=== PATIENT | female | born 2000 | race Caucasian/White ===

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

== ENCOUNTER 2018-03-31 21:50 | Emergency (ER) | payer OTHER, SELFPAY ==
[~2018-03-31] VITALS: Ht 157.5 cm; Wt 56.8 kg
[~2018-03-31 21:50] MED LIST changes: +AUGM875T28 PO; +BENA25CA4 PO; +GUAN1TAB17 PO; +IBUP-1022 PO; +OLOP1OPD OS; +ZOFR4TAB14 PO
[2018-03-31 21:51] VITALS: BP 118/76
== END 2018-04-01 | disposition left against medical advice (07) ==
LOC: M ED 21:50
DX: J00 Acute nasopharyngitis [common cold] (principal); Z53.21 Procedure and treatment not carried out due to patient leaving prior to being seen by health care provider

== ENCOUNTER 2018-04-02 20:12 | Emergency (ER) | payer MEDICAID, SELFPAY ==
[~2018-04-02] VITALS: Ht 162.6 cm; Wt 56.8 kg
[~2018-04-02 20:12] MED LIST changes: -OLOP1OPD OS; +PATA2.5S OS
[2018-04-02 20:15] VITALS: BP 132/74
[2018-04-02 20:34] LABS: HEMATOCRIT 45.6 % (36.0-47.0); HEMOGLOBIN 15.2 g/dl (12.0-15.5); MEAN CORPUSCULAR HEMOGLOBIN 29.1 pg (27.0-33.0); MEAN CORPUSCULAR HGB CONC 33.3 g/dl (32.0-36.5); MEAN CORPUSCULAR VOLUME 87.4 fl (80.0-96.0); PLATELET COUNT, AUTOMATED 288 10^3/uL (150-450); RED BLOOD COUNT 5.22 10^6/uL (4.00-5.40)
[2018-04-02] MEDS ORDERED: DERMABOND TOPICAL SKIN ADHESIVE TOP ONE (20:45)
[2018-04-02 20:56] LABS: HCG, SERUM QUALITATIVE NEGATIVE (NEGATIVE)
[2018-04-02 21:06] LABS: ACETAMINOPHEN LEVEL < 2.0 UG/ML (10.0-30.0); ALBUMIN 4.2 GM/DL (3.2-5.2); ALT/SGPT 21 U/L (12-78); BILIRUBIN,DIRECT < 0.1 MG/DL (0.0-0.2); BILIRUBIN,TOTAL 0.3 MG/DL (0.2-1.0); BLOOD UREA NITROGEN 5 MG/DL (7-18); CALCIUM LEVEL 9.1 MG/DL (8.5-10.1); CARBON DIOXIDE LEVEL 30 MEQ/L (21-32); CHLORIDE LEVEL 104 MEQ/L (98-107); CREATININE FOR GFR 0.78 MG/DL (0.55-1.30); ETHYL ALCOHOL (ETHANOL) < 0.003 % (0.000-0.010); GLUCOSE, FASTING 88 MG/DL (70-100); POTASSIUM SERUM 3.3 MEQ/L (3.5-5.1); SALICYLATE LEVEL 2.2 MG/DL (5.0-30.0); SODIUM LEVEL 140 MEQ/L (136-145); TOTAL PROTEIN 7.9 GM/DL (6.4-8.2)
[2018-04-02] MEDS ORDERED: POTASSIUM CHLORIDE 10 MEQ SR TABLET PO ONE (21:45)
== END 2018-04-02 21:55 | disposition home or self-care (01) ==
LOC: M ED 20:12
DX: R46.89 Other symptoms and signs involving appearance and behavior (principal); S51.812A Laceration without foreign body of left forearm, initial encounter; X78.8XXA Intentional self-harm by other sharp object, initial encounter; Y92.89 Other specified places as the place of occurrence of the external cause; F33.9 Major depressive disorder, recurrent, unspecified; F17.210 Nicotine dependence, cigarettes, uncomplicated
CPT/HCPCS: 12002; 12013; 36415; 80048; 80076; 84443; 84703; 85027; 99285; G0480

== ENCOUNTER 2018-04-24 19:07 | Emergency (ER) | payer MEDICAID, SELFPAY ==
[~2018-04-24] VITALS: Ht 162.6 cm; Wt 56.8 kg
[2018-04-24 19:40] LABS: BASO % 0.1 % (0.0-1.0); EOS % 0.1 % (0.0-3.0); HEMATOCRIT 41.7 % (36.0-47.0); HEMOGLOBIN 13.9 g/dl (12.0-15.5); LYMPH # 1.7 10^3/uL (1.5-6.5); LYMPH % 10.4 % (24.0-44.0); MEAN CORPUSCULAR HGB CONC 33.3 g/dl (32.0-36.5); MEAN CORPUSCULAR VOLUME 87.1 fl (80.0-96.0); MONO # 0.7 10^3/uL (0.0-0.8); MONO % 4.2 % (0.0-5.0); NEUTROPHILS # 14.2 10^3/uL (1.8-7.7); NEUTROPHILS % 84.8 % (36.0-66.0); PLATELET COUNT, AUTOMATED 237 10^3/uL (150-450); RED BLOOD COUNT 4.79 10^6/uL (4.00-5.40); WHITE BLOOD COUNT 16.8 10^3/uL (4.0-10.0)
[2018-04-24 20:06] LABS: BLOOD UREA NITROGEN 10 MG/DL (7-18); CALCIUM LEVEL 8.6 MG/DL (8.5-10.1); CARBON DIOXIDE LEVEL 27 MEQ/L (21-32); CHLORIDE LEVEL 104 MEQ/L (98-107); CREATININE FOR GFR 0.76 MG/DL (0.55-1.30); GLUCOSE, FASTING 93 MG/DL (70-100); POTASSIUM SERUM 3.5 MEQ/L (3.5-5.1); SODIUM LEVEL 139 MEQ/L (136-145)
[2018-04-24] MEDS ORDERED: IBUPROFEN 800 MG TAB PO ONE (21:15)
[2018-04-24] MEDS ORDERED: AUGMENTIN 875 MG TAB PO ONE (21:15)
[2018-04-24] MEDS ORDERED: AUGM875T28 PO (23:27)
[2018-04-24] MEDS ORDERED: IBUP80TA PO (23:29)
[2018-04-24] MEDS ORDERED: TETANUS/DIPHTHERIA TOX ADSORB ADULT 0.5ML SYR/VIAL (90714) IM ONE (23:30)
[2018-04-25 00:07] VITALS: BP 104/56
== END 2018-04-25 00:09 | disposition home or self-care (01) ==
LOC: M ED 19:07
DX: S61.451A Open bite of right hand, initial encounter (principal); W55.01XA Bitten by cat, initial encounter; Y92.9 Unspecified place or not applicable; Y93.9 Activity, unspecified; Y99.9 Unspecified external cause status; Z72.0 Tobacco use; F12.10 Cannabis abuse, uncomplicated

== ENCOUNTER 2018-07-22 10:12 | Inpatient (IN) | payer MEDICAID, OTHER ==
[~2018-07-22] VITALS: Ht 162.6 cm; Wt 50.2 kg
[~2018-07-22 10:12] MED LIST changes: +IBUP80TA PO
[2018-07-22 11:45] LABS: HEMATOCRIT 40.1 % (36.0-47.0); HEMOGLOBIN 13.2 g/dl (12.0-15.5); MEAN CORPUSCULAR HGB CONC 32.9 g/dl (32.0-36.5); MEAN CORPUSCULAR VOLUME 91.1 fl (80.0-96.0); PLATELET COUNT, AUTOMATED 272 10^3/uL (150-450); WHITE BLOOD COUNT 7.8 10^3/uL (4.0-10.0)
[2018-07-22 12:18] LABS: HCG, SERUM QUALITATIVE NEGATIVE (NEGATIVE)
[2018-07-22 12:21] LABS: ALBUMIN 3.7 GM/DL (3.2-5.2); ALT/SGPT 18 U/L (12-78); BILIRUBIN,DIRECT < 0.1 MG/DL (0.0-0.2); BILIRUBIN,TOTAL 0.3 MG/DL (0.2-1.0); BLOOD UREA NITROGEN 6 MG/DL (7-18); CALCIUM LEVEL 8.9 MG/DL (8.5-10.1); CARBON DIOXIDE LEVEL 28 MEQ/L (21-32); CHLORIDE LEVEL 107 MEQ/L (98-107); CPK CREATINE PHOSPHOKINASE 245 U/L (26-192); CREATININE FOR GFR 0.65 MG/DL (0.55-1.30); GLUCOSE, FASTING 103 MG/DL (70-100); POTASSIUM SERUM 4.1 MEQ/L (3.5-5.1); SODIUM LEVEL 143 MEQ/L (136-145); TOTAL PROTEIN 7.2 GM/DL (6.4-8.2)
[2018-07-22 12:22] LABS: ACETAMINOPHEN LEVEL < 2.0 UG/ML (10.0-30.0); ETHYL ALCOHOL (ETHANOL) < 0.003 % (0.000-0.010); SALICYLATE LEVEL 2.7 MG/DL (5.0-30.0)
[2018-07-22 12:23] LABS: AMPHETAMINES LEVEL URINE NEGATIVE (NEGATIVE); BARBITURATES URINE NEGATIVE (NEGATIVE); BENZODIAZEPINES URINE NEGATIVE (NEGATIVE); CANNABINOIDS URINE POSITIVE (NEGATIVE); COCAINE METABOLITE URINE NEGATIVE (NEGATIVE); METHADONE URINE NEGATIVE (NEGATIVE); OPIATES URINE NEGATIVE (NEGATIVE); PHENCYCLIDINE URINE NEGATIVE (NEGATIVE)
[2018-07-22] MEDS ORDERED: MOM 30ML SUSPENSION UDC PO PRN (19:00)
[2018-07-22] MEDS ORDERED: LORazepam 1 MG TAB PO PRN (19:00)
[2018-07-22] MEDS ORDERED: MAALOX 30 ML SUSP *UDC PO PRN (19:00)
[2018-07-22] MEDS ORDERED: NICOTINE 14 MG/24 HR TRANSDERMAL TD ONE (20:00)
[2018-07-22] MEDS ORDERED: NICOTINE 21MG/24HR 1 EA TRANSDERMAL TD ONE (20:15)
--- NOTE | 2018-07-22 21:00 | ECGEPIP ---
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
[2018-07-23 02:03] VITALS: BP 119/86
[2018-07-23] MEDS: NICOTINE 21MG/24HR 1 EA TRANSDERMAL TD SCH (11:12)
[2018-07-23 11:55] VITALS: BP 122/70
[2018-07-23] MEDS ORDERED: DOCUSATE SODIUM 100 MG CAP PO PRN (13:15)
--- NOTE | 2018-07-23 13:15 | HPEPDOC ---
General Date of Admission July 22, 2018 at 18:58 Date of Service: July 23, 2018 Attending Physician: ANA WEBSTER MD Chief Complaint The patient is a 17-year-old female admitted with a reason for visit of Unspecified D/O. Source: Patient, RN/MD Exam Limitations: No limitations Severity: Severe Associated Symptoms: Increased agitation History of Present Illness Patient is a 17-year-old female, past medical history significant for depression, polysubstance abuse, admitted on account of suicidal and homicidal ideation. Patient had been fighting with her boyfriend when she mentioned slitting her throat an intention to harm others. She was admitted to inpatient psychiatric unit for further evaluation and management. On assessment, she denies chest pain, shortness of breath, nausea, abdominal pain. She, however, complains of cough which occurs when she lies down, lasting a long time usually. Home Medications No Active Prescriptions or Reported Meds Allergies Coded Allergies: No Known Allergies (Unverified , 04/24/18) Past Medical History Medical History Depression. Polysubstance abuse-THC, meth, cocaine, acid Surgical History Denies Social History * Smoker: greater than 1 pack/day Alcohol: occationally Drugs: cocaine, marijuana A-FIB/CHADSVASC A-FIB History Current/History of A-Fib/PAF?: No Current PO Anticoag Therapy: No Review of Systems Other systems A 10 point pertinent review of systems was completed, negative except as stated in the history of presenting illness. Physical Examination Other physical findings GENERAL: NAD SKIN : Warm, dry intact HEENT: Atraumatic, normocephalic, PERRL, moist mucous membrane CARDIOVASCULAR: Regular rate and rhythm, S1S2, no JVD, no edema, distal pulses + and palpable RESP: CTAB, no accessory muscle use noted ABDOMEN: BS+ non distended non tender MS: no joint deformities NEURO: Alert and oriented x 3, CN2-12 grossly intact PSYCH: no anxiety or agitation, appropriate mood and affect. Vital Signs Vital Signs Date Time Temp Pulse Resp B/P (MAP) Pulse Ox O2 Delivery O2 Flow Rate FiO2 07/23/18 11:55 99.1 94 16 122/70 (87) 07/23/18 08:17 Room Air 07/23/18 01:23 99 Assessment/Plan Paroxysmal cough Polysubstance abuse Depression Suicidal ideation/homicidal ideation PLAN I'll the patient has risk factors for bronchitis with polysubstance abuse and nicotine dependence. Her symptoms are suggestive of possibly GERD since they occur when she is lying down. We'll start on proton pump inhibitor and loratadine. Monitor response to above All other underlying acute psychiatric issues are being managed by primary team Plan / VTE VTE Prophylaxis Ordered?: No VTE Exclusion Mechanical Proph: Low Risk for VTE BELLA GOMEZ [facility] July 23, 2018 13:15
[2018-07-23] MEDS: LORATADINE 10 MG TAB PO SCH (14:16)
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
[2018-07-23] MEDS ORDERED: SERTRALINE HCL 50 MG TAB PO ONE (16:00)
[2018-07-23 18:01] VITALS: BP 115/59
[2018-07-23] MEDS: ACETAMINOPHEN TAB 650MG DOSE (2X325MG) PO PRN (18:26)
[2018-07-23] MEDS: PANTOPRAZOLE 40MG TAB (PROTONIX) PO SCH (20:37)
[2018-07-23 22:27] VITALS: BP 120/70
[2018-07-24 06:33] VITALS: BP 130/65
[2018-07-24] MEDS ORDERED: SERTRALINE HCL 50 MG TAB PO SCH (09:00)
[2018-07-24] MEDS: LORATADINE 10 MG TAB PO SCH (09:09)
[2018-07-24] MEDS: ONDANSETRON 4 MG ORAL DISINTEGRATING TAB (Q0162 PER 1MG) SL PRN ×2 (09:09→20:54)
[2018-07-24] MEDS: NICOTINE 21MG/24HR 1 EA TRANSDERMAL TD SCH (09:09)
--- NOTE | 2018-07-24 09:37 | MHIPNPDOC ---
[facility] Progress Note Progress Note DATE OF SERVICE: 07/24/18 HISTORY: Patient is a 17 -year-old , female, with a history of depression, anxiety, borderline personality d/o, polysubstance abuse, cutting, multiple admission [facility] as an adolescent who was brought to ED by PD under a 9.41 after pt's boyfriend called them due to pt threatening suicide and cutting herself with a razor on her lt arm, rt leg superficially per ED . Pt stated to PD who then reported pt's statements to ED BHU staff "I should have slit my throat, would have done a better job." Pt stated to staff in ED during interv iew "everyone I come in contact with" regarding HI and "Don't worry I won't hurt you, but stream control officer outside door I wish would ." She stated in ED that she and her boyfriend have been together for the past 4months and constantly fight with each other, cut themselves together to see who does it worse, used drugs together (sober prior to relationship). ED stated that pt had been send phone pics to boyfriend of her cutting her arm and leg. Pt stated that she has been cutting since she was 12y/o to releave emotional pain, but current only does it occasionally per ED. Pt endorsed depression, anger, anxiety, insomnia in ED. ED contacted pt's CM who speaks with pt daily and informed ED pt has be cutting, abusing substances, has moods that are up then down, anger, and poor appetite especially when feeling depressed. She admitted to not taking meds or being seen for outpatient treatment for 2yrs after last d/c [facility] per ED. VITAL SIGNS: See below. NEW TEST RESULTS: See below. CURRENT MEDICATIONS: See below. MENTAL STATUS EXAMINATION: General Appearance: well groomed, appears stated age, hospital scrubs/clothing, other (very superficial cuts almost like a rug burn on her lower forearm not her wrist) Demeanor: average Eye Contact: average Activity: average, anxious Behavior: cooperative Speech: clear, spontaneous, reg/rate,rhythm,volume Mood: depressed, flat Mood "decent" Affect: appropriate, congruent, flat Thought Process: logical/linear, depressed, intact Thought Content (Delusions): none reported, denies SI, HI, AVH Thought Content (Other): none reported Thought Content (Aggressive): none reported Perception (Hallucinations): none reported Perception (Other): none reported Cognition (Impairment of): none reported Cognition(Intelligence Est.): average Oriented: Awake, Alert, Oriented times three Insight: poor Judgment: Poor Psychosis: Denies DIAGNOSES: 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 Endorses stomach upset and nausea this am and explained to her most likely a side effect of zoloft and can decrease dose to improve. Also encouraged to take zoloft with food to limit stomach upset from it. Denies anger, SI/HI today. Denies urge to cut. States she's being social on the milieu which is beneficial. States she slept well last night. Feels she is tolerating her medications and they're beneficial. She is attending groups and finding them helpful. She denies SI/HI, hallucinations, delusions. Pt feels safe here. MANAGEMENT PLAN: continue plan medications: AbiLIFY 5 mg DAILY Atarax 25 mg Q4HP PRN PO ANXIETY/AGITATION Zoloft 25 mg DAILY Trazodone 50 mg QHSP PRN PO INSOMNIA TIME SPENT: 30 minutes. Vital Signs Vital Signs Date Time Temp Pulse Resp B/P (MAP) Pulse Ox O2 Delivery O2 Flow Rate FiO2 07/24/18 08:37 Room Air 07/24/18 06:33 97.0 64 14 130/65 (86) 07/23/18 01:23 99 Current Medications Current Medications Acetaminophen (Tylenol Tab) 650 mg Q6HP PRN PO HEADACHE or DISCOMFORT Last administered on 07/23/18at 18:26; Start 07/22/18 at 19:00 Al Hydrox/Mg Hydrox/Simethicone (Mylanta) 30 ml Q4HP PRN PO HEARTBURN/INDIGESTION; Start 07/22/18 at 19:00 Aripiprazole (AbiLIFY) 5 mg DAILY PO Last administered on 07/24/18at 09:09; Start 07/24/18 at 09:00 Docusate Sodium (Colace) 200 mg DAILYPRN PRN PO CONSTIPATION; Start 07/23/18 at 13:15 Home Med (Med Rec Complete!) ASDIRECTED XX ; Start 07/22/18 at 11:30; Stop 07/22/18 at 11:44; Status DC Hydroxyzine HCl (Atarax) 25 mg Q4HP PRN PO ANXIETY/AGITATION; Start 07/23/18 at 14:15 Loratadine (Claritin) 10 mg DAILY PO Last administered on 07/24/18 09:09; Start 07/23/18 at 14:00 Lorazepam (Ativan) 1 mg Q6HP PRN PO ANXIETY/AGITATION; Start 07/22/18 at 19:00; Status Cancel Magnesium Hydroxide (Milk Of Magnesia) 30 ml DAILYPRN PRN PO CONSTIPATION; Start 07/22/18 at 19:00 Nicotine (Nicoderm Cq 21mg) 1 patch DAILY TD Last administered on 07/24/18 09:09; Start 07/23/18 at 09:00 Ondansetron HCl (Zofran Odt) 4 mg Q4HP PRN SL NAUSEA OR VOMITING Last administered on 07/24/18 09:09; Start 07/24/18 at 08:30 Pantoprazole Sodium (Protonix) 40 mg QPM PO Last administered on 07/23/18at 20:37; Start 07/23/18 at 21:00 Sertraline HCl (Zoloft) 50 mg DAILY PO Last administered on 07/24/18 09:09; Start 07/24/18 at 09:00 Trazodone HCl (Desyrel) 50 mg QHSP PRN PO INSOMNIA; Start 07/22/18 at 19:00 Allergies Coded Allergies: No Known Allergies (Unverified , 04/24/18) TINA VENEGAS DO July 24, 2018 09:37
[2018-07-24 11:38] VITALS: BP 131/64
[2018-07-24 18:01] VITALS: BP 124/67
[2018-07-24] MEDS: traZODone 50 MG TAB PO PRN (20:54)
[2018-07-24] MEDS: hydrOXYzine 25 MG TAB PO PRN (20:54)
[2018-07-24] MEDS: ACETAMINOPHEN TAB 650MG DOSE (2X325MG) PO PRN (20:55)
[2018-07-24] MEDS: PANTOPRAZOLE 40MG TAB (PROTONIX) PO SCH (22:12)
[2018-07-25 06:19] VITALS: BP 121/58
[2018-07-25] MEDS: ONDANSETRON 4 MG ORAL DISINTEGRATING TAB (Q0162 PER 1MG) SL PRN (09:05)
[2018-07-25] MEDS: SERTRALINE HCL 25 MG TABLET PO SCH (09:05)
[2018-07-25] MEDS: NICOTINE 21MG/24HR 1 EA TRANSDERMAL TD SCH (09:05)
[2018-07-25] MEDS: LORATADINE 10 MG TAB PO SCH (09:05)
--- NOTE | 2018-07-25 10:58 | MHIPNPDOC ---
[facility] Progress Note Progress Note DATE OF SERVICE: 07/25/18 HISTORY: Patient is a 17 -year-old , female, with a history of depression, anxiety, borderline personality d/o, polysubstance abuse, cutting, multiple admission [facility] as an adolescent who was brought to ED by PD under a 9.41 after pt's boyfriend called them due to pt threatening suicide and cutting herself with a razor on her lt arm, rt leg superficially per ED. Pt stated to PD who then reported pt's statements to ED BHU staff "I should have slit my throat, would have done a better job." Pt stated to staff in ED during intervi ew "everyone I come in contact with" regarding HI and "Don't worry I won't hurt you, but low altitude air defense officer outside door I wish would ." She stated in ED that she and her boyfriend have been together for the past 4months and constantly fight with each other, cut themselves together to see who does it worse, used drugs together (sober prior to relationship). ED stated that pt had been send phone pics to boyfriend of her cutting her arm and leg. Pt stated that she has been cutting since she was 12y/o to releave emotional pain, but current only does it occasionally per ED. Pt endorsed depression, anger, anxiety, insomnia in ED. ED contacted pt's CM who speaks with pt daily and informed ED pt has be cutting, abusing substances, has moods that are up then down, anger, and poor appetite especially when feeling depressed. She admitted to not taking meds or being seen for outpatient treatment for 2yrs after last d/c [facility] per ED. VITAL SIGNS: See below. NEW TEST RESULTS: See below. CURRENT MEDICATIONS: See below. MENTAL STATUS EXAMINATION: General Appearance: well groomed, appears stated age, hospital scrubs/clothing, other (very superficial cuts almost like a rug burn on her lower forearm not her wrist) Demeanor: average Eye Contact: average Activity: average, less anxious Behavior: cooperative Speech: clear, spontaneous, reg/rate,rhythm,volume Mood: less depressed, less flat Mood "decent" Affect: appropriate, congruent, less flat Thought Process: logical/linear, less depressed, intact Thought Content (Delusions): none reported, denies SI, HI, AVH Thought Content (Other): none reported Thought Content (Aggressive): none reported Perception (Hallucinations): none reported Perception (Other): none reported Cognition (Impairment of): none reported Cognition(Intelligence Est.): average Oriented: Awake, Alert, Oriented times three Insight: fair Judgment: fair Psychosis: Denies DIAGNOSES: 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 Improved stomach upset in am with decrease in zoloft, tolerating current dose well and feels it's beneficial. States she tolerating abilify well, feels it's beneficial for mood stabilization and likes it. Denies anger, SI/HI today. Denies urge to cut. States she's being social on the milieu which is beneficial. States she slept well last night although did have a vivid dream most likely due to trazodone but states she wants to continue trazodone b/c it's beneficial and does mind having vivid dreams. Feels she is tolerating her medications and they're beneficial. She is attending groups and finding them helpful. She denies SI/HI, hallucinations, delusions. Pt feels safe here. MANAGEMENT PLAN: continue plan medications: AbiLIFY 5 mg DAILY Atarax 25 mg Q4HP PRN PO ANXIETY/AGITATION Zoloft 25 mg DAILY Trazodone 50 mg QHSP PRN PO INSOMNIA TIME SPENT: 30 minutes. Vital Signs Vital Signs Date Time Temp Pulse Resp B/P (MAP) Pulse Ox O2 Delivery O2 Flow Rate FiO2 07/25/18 06:19 96.9 87 14 121/58 (79) 07/24/18 08:37 Room Air 07/23/18 01:23 99 Current Medications Current Medications Acetaminophen (Tylenol Tab) 650 mg Q6HP PRN PO HEADACHE or DISCOMFORT Last administered on 07/24/18at 20:55; Start 07/22/18 at 19:00 Al Hydrox/Mg Hydrox/Simethicone (Mylanta) 30 ml Q4HP PRN PO HEARTBURN/INDIGESTION; Start 07/22/18 at 19:00 Aripiprazole (AbiLIFY) 5 mg DAILY PO Last administered on 07/25/18at 09:05; Start 07/24/18 at 09:00 Docusate Sodium (Colace) 200 mg DAILYPRN PRN PO CONSTIPATION; Start 07/23/18 at 13:15 Home Med (Med Rec Complete!) ASDIRECTED XX ; Start 07/22/18 at 11:30; Stop 07/22/18 at 11:44; Status DC Hydroxyzine HCl (Atarax) 25 mg Q4HP PRN PO ANXIETY/AGITATION Last administered on 07/24/18 20:54; Start 07/23/18 at 14:15 Loratadine (Claritin) 10 mg DAILY PO Last administered on 07/25/18 09:05; Start 07/23/18 at 14:00 Lorazepam (Ativan) 1 mg Q6HP PRN PO ANXIETY/AGITATION; Start 07/22/18 at 19:00; Status Cancel Magnesium Hydroxide (Milk Of Magnesia) 30 ml DAILYPRN PRN PO CONSTIPATION; Start 07/22/18 at 19:00 Nicotine (Nicoderm Cq 21mg) 1 patch DAILY TD Last administered on 07/25/18 09:05; Start 07/23/18 at 09:00 Ondansetron HCl (Zofran Odt) 4 mg Q4HP PRN SL NAUSEA OR VOMITING Last administered on 07/25/18 09:05; Start 07/24/18 at 08:30 Pantoprazole Sodium (Protonix) 40 mg QPM PO Last administered on 07/24/18 22:12; Start 07/23/18 at 21:00 Sertraline HCl (Zoloft) 25 mg DAILY PO Last administered on 07/25/18 09:05; Start 07/25/18 at 09:00 Sertraline HCl (Zoloft) 50 mg DAILY PO Last administered on 07/24/18 09:09; Start 07/24/18 at 09:00; Stop 07/24/18 at 09:52; Status DC Trazodone HCl (Desyrel) 50 mg QHSP PRN PO INSOMNIA Last administered on 07/24/18 20:54; Start 07/22/18 at 19:00 Allergies Coded Allergies: No Known Allergies (Unverified , 04/24/18) TINA VENEGAS DO July 25, 2018 09:11
[2018-07-25] MEDS: hydrOXYzine 25 MG TAB PO PRN ×2 (12:23→18:30)
[2018-07-25 17:53] VITALS: BP 114/70
[2018-07-25] MEDS: PANTOPRAZOLE 40MG TAB (PROTONIX) PO SCH (21:00)
[2018-07-25] MEDS: traZODone 50 MG TAB PO PRN (21:32)
[2018-07-26 06:42] VITALS: BP_SYST 123; BP_SYST 69; BP_DIAS 14; BP_DIAS 74
[2018-07-26] MEDS: NICOTINE 21MG/24HR 1 EA TRANSDERMAL TD SCH (09:45)
[2018-07-26] MEDS: LORATADINE 10 MG TAB PO SCH (09:46)
[2018-07-26] MEDS: SERTRALINE HCL 25 MG TABLET PO SCH (09:46)
[2018-07-26] MEDS: hydrOXYzine 25 MG TAB PO PRN ×2 (11:10→20:26)
[2018-07-26] MEDS ORDERED: SERTRALINE HCL 25 MG TABLET PO ONE (13:30)
[2018-07-26 18:12] VITALS: BP 120/61
[2018-07-26] MEDS: traZODone 50 MG TAB PO PRN (20:25)
[2018-07-26] MEDS: PANTOPRAZOLE 40MG TAB (PROTONIX) PO SCH (21:00)
[2018-07-27 06:35] VITALS: BP 103/51
[2018-07-27] MEDS: LORATADINE 10 MG TAB PO SCH (09:03)
[2018-07-27] MEDS: NICOTINE 21MG/24HR 1 EA TRANSDERMAL TD SCH (09:03)
[2018-07-27] MEDS: SERTRALINE HCL 50 MG TAB PO SCH (09:03)
--- NOTE | 2018-07-27 09:47 | MHIPN ---
DATE: 07/26/2018 CHIEF COMPLAINT: Says feels depressed. SUBJECTIVE: Seen for followup. Indicates she is feeling better, but still depressed, and that she feels the Zoloft ought to be increased, says used to take 150 mg, stopped it more than a year or so ago, says did well on it. MENTAL STATUS EXAM: Neat, cooperative, no agitation, no psychomotor retardation, has restricted affect, at times a bit tearful. She denies any thoughts of harming herself or anyone else. No firm plans. No evidence of any psychosis. Cognition grossly intact. Judgment and insight fair. ASSESSMENT: Major depressive disorder. Remains depressed and says also upset, has just received news that she may need to get rid of her dogs at her apartment, feels it is unfair. PLAN: Continue current care and the Zoloft is increased to 50 mg daily, may need to be titrated upwards, but still looking at an effective dose, and the lowest possible effective dose would be preferable, given the potential for side effects. She has been encouraged to participate in activities in the unit. Further recommendations will be made depending on the clinical picture. VITAL SIGNS: Blood pressure 123/74, pulse 69, temperature 98.3.
[2018-07-27] MEDS: hydrOXYzine 25 MG TAB PO PRN (16:18)
[2018-07-27 18:03] VITALS: BP 118/76
[2018-07-27] MEDS: PANTOPRAZOLE 40MG TAB (PROTONIX) PO SCH (20:53)
[2018-07-27] MEDS: traZODone 50 MG TAB PO PRN (20:54)
[2018-07-28 06:54] VITALS: BP 98/52
[2018-07-28] MEDS: LORATADINE 10 MG TAB PO SCH (08:57)
[2018-07-28] MEDS: SERTRALINE HCL 50 MG TAB PO SCH (08:57)
[2018-07-28] MEDS: NICOTINE 21MG/24HR 1 EA TRANSDERMAL TD SCH (08:58)
[2018-07-28] MEDS ORDERED: ABIL1TAB11 PO (09:28)
[2018-07-28] MEDS ORDERED: TRAZO50TA PO (09:28)
[2018-07-28] MEDS ORDERED: SERT-155 PO (09:28)
[2018-07-28] MEDS ORDERED: HYDR-3363 PO (09:28)
--- NOTE | 2018-07-28 09:29 | MHDSPDOC ---
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 Pt stated to PD who then reported pt's statements to ED [facility] staff "I should have slit my throat, would have done a better job." Pt stated to staff in ED during interview "everyone I come in contact with" regarding HI and "Don't worry I won't hurt you, but police chief deputy outside door I wish would ." She stated in ED that she and her boyfriend have been together for the past 4months and constantly fight with each other, cut themselves together to see who does it worse, used drugs together (sober prior to relationship). ED stated that pt had been send phone pics to boyfriend of her cutting her arm and leg. Pt stated that she has been cutting since she was 12y/o to releave emotional pain, but current only does it occasionally per ED. Pt endorsed depression, anger, anxiety, insomnia in ED. ED contacted pt's CM who speaks with pt daily and informed ED pt has be cutting, abusing substances, has moods that are up then down, anger, and poor appetite especially when feeling depressed. She admitted to not taking meds or being seen for outpatient treatment for 2yrs after last d/c [facility] per ED. CONSULTANTS INVOLVED: none TREATMENT AND PROGRESS ON THE UNIT : Pt was admitted to [facility], seen for psychiatric assessment and started on zoloft 50mg daily for mood and anxiety and abilify 5mg daily for antidepressant augmentation. She was provided vistaril 25mg q6hr prn anxiety and trazodone 50mg qhs prn insomnia. Pt found her medications beneficial and tolerated them well. She attended groups daily during her stay. Her symptoms improved with treatment. On day of discharge she denied depression, anxiety, insomnia, SI/HI, hallucinations, delusions. She was discharged home after family meeting with her sister with follow-up at [facility]3]. She felt safe for discharge. DISCHARGE ASSESSMENT: Pt seen and states she feels "good" and is looking forward to going home today with her boyfriend who she states is supportive and getting help for himself too. tolerating her zoloft well and feels it's beneficial. States she tolerating abilify well, feels it's beneficial for mood stabilization and likes it. Denies anger, SI/HI today. Denies urge to cut. States she's being social on the milieu which is beneficial. States she slept well last night although did have a vivid dream most likely due to trazodone but states she wants to continue trazodone b/c it's beneficial and does mind having vivid dreams. Feels she is tolerating her medications and they're beneficial. She is attending groups and finding them helpful. She denies depression, anxiety, insomnia, SI/HI, hallucinations, delusions. Pt feels safe to be discharged home. MENTAL STATUS EXAMINATION ON DISCHARGE: General Appearance: well groomed, appears stated age, hospital scrubs/clothing, other (very superficial cuts almost like a rug burn on her lower forearm not her wrist) Demeanor: average Eye Contact: average Activity: average, calm Behavior: cooperative Speech: clear, spontaneous, reg/rate,rhythm,volume Mood: euthymic, full Mood "good" Affect: appropriate, congruent, full Thought Process: logical/linear, intact Thought Content (Delusions): none reported, denies SI, HI, AVH Thought Content (Other): none reported Thought Content (Aggressive): none reported Perception (Hallucinations): none reported Perception (Other): none reported Cognition (Impairment of): none reported Cognition(Intelligence Est.): average Oriented: Awake, Alert, Oriented times three Insight: good Judgment: good Psychosis: Denies MEDICATIONS ON DISCHARGE: AbiLIFY 5 mg DAILY Atarax 25 mg Q4HP PRN PO ANXIETY/AGITATION Zoloft 50 mg DAILY Trazodone 50 mg QHSP PRN PO INSOMNIA PLAN/FOLLOWUP ARRANGEMENTS: D/c home with follow-up at [facility]3]. The amount of time spent in the coordination of care for this patient was approx imately 30 minutes. Vital Signs/I&Os Vital Signs Date Time Temp Pulse Resp B/P (MAP) Pulse Ox O2 Delivery O2 Flow Rate FiO2 07/28/18 06:54 98.0 69 14 98/52 (67) 07/27/18 07:59 Room Air 07/23/18 01:23 99 Medications No Active Prescriptions or Reported Meds Allergies Coded Allergies: No Known Allergies (Unverified , 04/24/18) TINA VENEGAS DO Jul 28, 2018 9:29 am
[2018-07-28] MEDS: hydrOXYzine 25 MG TAB PO PRN (11:39)
== END 2018-07-28 12:15 | disposition home or self-care (01) | DRG 751 ==
LOC: M ED 10:12 → M ED INP 18:58 → M PSY 07-23 01:47
PROVIDERS: ADMIT Psychiatry & Neurology Psychiatry; ATTEND Psychiatry & Neurology Psychiatry
DX: F33.1 Major depressive disorder, recurrent, moderate (principal); F60.3 Borderline personality disorder; F41.9 Anxiety disorder, unspecified; Z91.5 Personal history of self-harm; Z91.14 Patient's other noncompliance with medication regimen; Z91.19 Patient's noncompliance with other medical treatment and regimen; F17.200 Nicotine dependence, unspecified, uncomplicated; F14.10 Cocaine abuse, uncomplicated; F15.10 Other stimulant abuse, uncomplicated; F12.10 Cannabis abuse, uncomplicated; F16.10 Hallucinogen abuse, uncomplicated; Z63.0 Problems in relationship with spouse or partner; K21.9 Gastro-esophageal reflux disease without esophagitis; R11.0 Nausea; T43.225A Adverse effect of selective serotonin reuptake inhibitors, initial encounter

== ENCOUNTER 2018-08-12 18:13 | Emergency (ER) | payer MEDICAID, OTHER ==
[~2018-08-12] VITALS: Ht 162.6 cm; Wt 50.0 kg
[2018-08-12 18:13] VITALS: BP 119/56
[~2018-08-12 18:13] MED LIST changes: +ABIL1TAB11 PO; +HYDR-3363 PO; +SERT-155 PO; +TRAZ1TAB10 PO
== END 2018-08-12 20:38 | disposition left against medical advice (07) ==
LOC: M ED 18:13
DX: Z53.29 Procedure and treatment not carried out because of patient's decision for other reasons (principal)

== ENCOUNTER 2019-07-03 01:56 | Emergency (ER) | payer OTHER, SELFPAY ==
[~2019-07-03] VITALS: Ht 160 cm; Wt 52.3 kg
[~2019-07-03 01:56] MED LIST changes: -DIPH25CA PO; +DIPH25CA32 PO; -SERT-155 PO; +SERT50TA29 PO
[2019-07-03 02:31] VITALS: BP 138/89
== END 2019-07-03 02:35 | disposition home or self-care (01) ==
LOC: M ED 01:56
DX: F41.8 Other specified anxiety disorders (principal); F60.3 Borderline personality disorder

== ENCOUNTER 2019-08-19 21:31 | Emergency (ER) | payer MEDICAID, SELFPAY ==
[~2019-08-19] VITALS: Ht 162.6 cm; Wt 53.7 kg
[2019-08-19 21:32] VITALS: BP 118/63
[2019-08-19] MEDS ORDERED: cefTRIAXone SOD 250MG VIAL (J0696 PER 250MG) IM ONE (22:30)
[2019-08-19] MEDS ORDERED: LIDOCAINE 1% SDV 5ML VIAL DILUENT ONE (22:30)
[2019-08-19] MEDS ORDERED: AZITHROMYCIN 250MG TABLET PO ONE (22:30)
[2019-08-19] MEDS ORDERED: FLAG500T PO (23:20)
[2019-08-20 00:42] LABS: CHLAMYDIA DNA AMPLIFICATION POSITIVE (NEGATIVE); GC DNA AMPLIFICATION POSITIVE (NEGATIVE)
--- NOTE | 2019-08-20 21:24 | ED PDOC ---
Post-Departure Follow-Up called patient on the phone to rely results, she was called by someone this am with the results and is aware. she was told she needed to product picker a prescription, however she was treated here in the ER last night so will not need that prescription. Pt understands she still needs to take Flagyl. 08/20/19 2120 MIKALA CRISTOBAL PA-C Aug 20, 2019 21:24
== END 2019-08-19 23:29 | disposition home or self-care (01) ==
LOC: M ED 21:31
DX: Z20.2 Contact with and (suspected) exposure to infections with a predominantly sexual mode of transmission (principal); N76.0 Acute vaginitis; F17.210 Nicotine dependence, cigarettes, uncomplicated
CPT/HCPCS: 87210; 87661; 96374; 99283; J0696

== ENCOUNTER → 2019-09-28 | Emergency (ER) | payer MEDICAID ==
[~2019-09-28] MED LIST changes: +FLAG500T PO
== END | disposition left against medical advice (07) ==
LOC: M ED 19:30
DX: Z53.29 Procedure and treatment not carried out because of patient's decision for other reasons (principal)

== ENCOUNTER 2020-01-30 20:46 | Emergency (ER) | payer MEDICAID ==
[~2020-01-30] VITALS: Ht 162.6 cm; Wt 51.5 kg
[2020-01-30 21:24] LABS: BASO % 0.2 % (0.0-1.0); EOS # 0.2 10^3/uL (0.0-0.5); EOS % 1.7 % (0.0-3.0); HEMATOCRIT 44.6 % (36.0-47.0); HEMOGLOBIN 14.2 g/dl (12.0-15.5); LYMPH # 2.6 10^3/uL (1.5-5.0); LYMPH % 28.3 % (24.0-44.0); MEAN CORPUSCULAR HGB CONC 31.8 g/dl (32.0-36.5); MEAN CORPUSCULAR VOLUME 94.3 fl (80.0-96.0); MONO # 0.6 10^3/uL (0.0-0.8); MONO % 6.4 % (0.0-5.0); NEUTROPHILS # 5.7 10^3/uL (1.5-8.5); NEUTROPHILS % 63.2 % (36.0-66.0); PLATELET COUNT, AUTOMATED 227 10^3/uL (150-450); RED BLOOD COUNT 4.73 10^6/uL (4.00-5.40)
[2020-01-30 21:52] LABS: HCG, SERUM QUALITATIVE NEGATIVE (NEGATIVE)
[2020-01-30 21:54] LABS: ALBUMIN 4.1 GM/DL (3.2-5.2); ALT/SGPT 11 U/L (12-78); BILIRUBIN,DIRECT 0.1 MG/DL (0.0-0.2); BILIRUBIN,TOTAL 0.3 MG/DL (0.2-1.0); BLOOD UREA NITROGEN 8 MG/DL (7-18); CALCIUM LEVEL 8.6 MG/DL (8.5-10.1); CARBON DIOXIDE LEVEL 30 MEQ/L (21-32); CHLORIDE LEVEL 108 MEQ/L (98-107); CREATININE FOR GFR 0.73 MG/DL (0.55-1.30); GLOMERULAR FILTRATION RATE > 60.0 (>60); GLUCOSE, FASTING 109 MG/DL (70-100); LIPASE 98 U/L (73-393); POTASSIUM SERUM 3.7 MEQ/L (3.5-5.1); SODIUM LEVEL 142 MEQ/L (136-145); TOTAL PROTEIN 7.2 GM/DL (6.4-8.2)
[2020-01-30 23:20] LABS: CHLAMYDIA DNA AMPLIFICATION NEGATIVE (NEGATIVE); GC DNA AMPLIFICATION NEGATIVE (NEGATIVE)
[2020-01-31] MEDS ORDERED: IBUPROFEN 600MG TAB PO ONE (00:15)
[2020-01-31 01:16] VITALS: BP 120/64
--- NOTE | 2020-02-01 08:50 | REP ---
INDICATION: right sided pelvic pain. Repeat dictation. Preliminary report is provided at the time of the exam by nuzhat JIANG. COMPARISON: None. TECHNIQUE: Transabdominal scanning is performed.. FINDINGS: Uterine dimensions are normal at 9.1 x 4.5 x 4.3 cm. Endometrial echo is 1.3 cm thick and centrally placed. No free fluid is seen in the cul-de-sac. Visualized bladder vora are smooth. The right ovary has dimensions of 3.0 x 2.9 x 3.0 cm. It's Doppler flow is normal with a resistive index of 0.61. The left ovary dimensions are normal as well at 2.3 x 2.0 x 2.3 cm. It's Doppler flow was normal with resistive index of 0.70. IMPRESSION: Normal pelvic sonography. <Electronically signed by Roberto Grigsby > 02/01/20 0890
== END 2020-01-31 01:18 | disposition home or self-care (01) ==
LOC: M ED 20:46
DX: R10.2 Pelvic and perineal pain (principal); R19.7 Diarrhea, unspecified; N89.9 Noninflammatory disorder of vagina, unspecified; I10 Essential (primary) hypertension; J45.909 Unspecified asthma, uncomplicated; F17.210 Nicotine dependence, cigarettes, uncomplicated; F12.20 Cannabis dependence, uncomplicated

== ENCOUNTER → 2020-03-11 | Outpatient (REF) | payer OTHER | LOC: M LAB REF 14:57 | PROVIDERS: ATTEND Physician Assistant | DX: N76.0 Acute vaginitis (principal) ==

== ENCOUNTER 2020-04-06 12:56 | Inpatient (IN) | payer MEDICAID, OTHER ==
[~2020-04-06] VITALS: Ht 162.6 cm; Wt 47.9 kg
[~2020-04-06 12:56] MED LIST changes: +SERTRALINE 100 MG TAB PO SCH
--- OUTSIDE RECORDS SUMMARY | 2020-04-06 13:00 | CCD | Continuity of Care Document ---
Author Author Dariela GARCIA Organization [place] [address] Phone [phone] Care Team Providers Care New Accounts Representative Name Role Phone Martha Trejo D.O. AUTM Problems Active Problems Provider Date Insomnia AQUILES Broussard Onset: 03/11/2020 Moderate recurrent major depression AQUILES Broussard Onse t: 02/09/2020 Social History Type Date Description Comments Sex Unknown Tobacco Use Start: Unknown Heavy tobacco smoker (more than 10 cigarettes/day) ETOH Use Occasionally consumes alcohol Tobacco Use Start: Unknown Heavy tobacco smoker (more than 10 cigarettes/day) Recreational Drug Use Regularly uses Marijuana Exercise Type/Frequency Does not exercise Sun Exposure Does not use sunscreen Seat Belt/Car Seat Always uses seat belt Allergies, Adverse Reactions, Alerts Description No Known Drug Allergies Medications Active Medications SIG Qnty Indications Ordering Provide r Date Bactrim DS 800-160mg Tablets 1 by mouth every 12 hour x 7 days 14tabs N76.0 Estephania TiwariO Ledy 03/17/2020 Diflucan 150mg Tablets one tablet in 4 days (halways through antibiotic course) and send tablet in 7 days 2tabs N76.0 Estephania TiwariOLedy 03/17/2020 Sertraline HCL 100mg Tablets 1 by mouth every day 90tabs F33.1 Estephania TiwariOLedy 03/11 Chantix Starting Month Jeffery 0.5mg X 11 & 1 mg X 42 Tablets take as directed. 53tabs F17.210 Estephania TiwariO. 03/11/2020 Alprazolam 0.5mg Tablets take one tablet by mouth every 12 hours as needed 14tabs F43.0 Martha Bello D.O. 03/11/2020 Trazodone HCL 50mg Tablets take 1 tablet by mouth every night at bedtime 90tabs G47.00 Martha choi D.O. 02/09/2020 Albuterol Sulfate HFA 108(90Base) mcg/Act Aerosol Inhale Two Puffs By Mouth Every 4 Hours U nknown History Medications Metronidazole 500mg Tablets one tablet by mouth every 12 hours for 10 days 20tabs N76.0 Martha blake D.O. 02/09/2020 - 03/11/2020 Sertraline HCL 50mg Tablets 1 by mouth every day 30tabs F33.1 Martha Trejo D.O. 02/08 - 03/11/2020 Immunizations Description No Information Available Vital Signs Date Vital Result Comment 03/17/2020 1:16pm BP Systolic 110 mmHg BP Diastolic 76 mmHg Height 63.6 inches 5'3.60" Weight 104.50 lb BMI (Body Mass Index) 18.2 kg/m2 Heart Rate 96 /min Respiratory Rate 22 /min Body Temperature 97.8 F O2 % BldC Oximetry 98 % [place] Body Weight 115 lb 03/11/2020 10:32am BP Systolic 116 mmHg BP Diastolic 84 mmHg Height 63.6 inches 5'3.60" Weight 109.12 lb BMI (Body Mass Index) 19.0 kg/m2 Heart Rate 78 /min Respiratory Rate 18 /min Body Temperature 97.5 F O2 % BldC Oximetry 99 % [place] Body Weight 115 lb Results Test Acquired Date Facility Test Result H/L Range Note Laboratory test finding 03/11/2020 [facility] [address] [place] [address] [phone] Genital Culture FULL REPORT IN L <SEE NOTE> Normal 1 Wet [place] Trichomonas 01/30/2020 [facility] Outpatient Geovanni ting (Registration) [address], [place] [id number] [phone] Wet Prep WET PREP RESULT Normal 2 Chlamydia, GC & Trich Amp 01/30/2020 [facility] Outpatient Testing (Registration) [address] [place] [address] [phone] Chlamydia Dna Amplification NEGATIVE Normal Nega tive 3 GC Dna Amplification NEGATIVE Normal Negative 4 Trichomonas vaginalis (Amp) NOT DETECTED Normal Negative 5 Ua W/ Reflex To Culture 01/30/2020 [facility] Outpatient T esting (Registration) [address] [place] [address] [phone] Appearance, Urine RFX HAZY Normal Clear Color, Urine RFX YELLOW Normal Yellow PH,Urine RFX 6.0 units Normal 5.0-9.0 Specific [place] Ur Auto RFX 1.005 Normal 1.002-1.035 Protein, Urine Auto RFX NEGATIVE mg/dL Normal Negative Glucose, Urine (Ua) Auto RFX NEGATIVE mg/dL Normal Negative Ketone, Urine Auto RFX NEGATIVE mg/dL Normal Negative Urobilinogen, Urine Auto RFX 0.2 mg/dL Normal 0.0-2.0 Bilirubin, Urine Auto RFX NEGATIVE Normal Negative Nitrite, Urine Auto RFX NEGATIVE Normal Negative Leukocyte Esterase Ur Auto RFX NEGATIVE Normal Negative Blood, Urine Blood RFX NEGATIVE Normal Negative WBC, Urine Auto RFX 1 /HPF Normal 0-3 RBC, Urine Auto RFX 1 /HPF Normal 0-3 Bacteria, Urine Auto RFX NEGATIVE Normal Negative Squam Epithelial Cell Ur Aurfx 8 /HPF Normal 0-6 Hyaline Cast, Urine Auto RFX 0 /LPF Normal 0-1 CBC With Differential 01/30/2020 [facility] Outpatient Geovanni ting (Registration) [address] [place] [address] [phone] White Blood Count 9.0 10 Normal 4.0-10.0 Red Blood Count 4.73 10 Normal 4.00-5.40 Hemoglobin 14.2 g/dL Normal 12.0-15.5 Hematocrit 44.6 % Normal 36.0-47.0 Mean Corpuscular Volume 94.3 fl Normal 80.0-96.0 Mean Corpuscular Hemoglobin 30.0 pg Normal 27.0-33.0 Mean Corpuscular HGB Conc 31.8 g/dL Low 32.0-36.5 Red Cell Distribution Width 12.7 % Normal 11.5-14.5 Platelet Count, Automated 227 10 Normal 150-450 Neutrophils % 63.2 % Normal 36.0-66.0 Lymph % 28.3 % Normal 24.0-44.0 [place] % 6.4 % High 0.0-5.0 Eos % 1.7 % Normal 0.0-3.0 Baso % 0.2 % Normal 0.0-1.0 Immature Granulocyte % 0.2 % Normal 0-3.0 Nucleated Red Blood Cell % 0.0 % Normal 0-0 Neutrophils # 5.7 10 Normal 1.5-8.5 Lymph # 2.6 10 Normal 1.5-5.0 [place] # 0.6 10 Normal 0.0-0.8 Eos # 0.2 10 Normal 0.0-0.5 Baso # 0.0 10 Normal 0.0-0.2 Liver Profile 01/30/2020 [facility] Outpatient Testi ng (Registration) [address] [place] [address] [phone] Ast/Sgot 16 U/L Normal 7-37 Alt/SGPT 11 U/L Low 12-78 Alkaline Phosphatase 70 U/L Normal 45-117 Bilirubin,Total 0.3 mg/dL Normal 0.2-1.0 Bilirubin,Direct 0.1 mg/dL Normal 0.0-0.2 Total Protein 7.2 GM/DL Normal 6.4-8.2 Albumin 4.1 GM/DL Normal 3.2-5.2 Albumin/Globulin Ratio 1.3 Normal 1.2-2.2 Basic Metabolic Profile 01/30/2020 [facility] Outpatient T esting (Registration) [address] [place] [address] [phone] Glucose, Fasting 109 mg/dL High 70-100 Blood Urea Nitrogen 8 mg/dL Normal 7-18 Creatinine For GFR 0.73 mg/dL Normal 0.55-1.30 Glomerular Filtration Rate > 60.0 Normal >60 6 Sodium Level 142 mEq/L Normal 136-145 Potassium Serum 3.7 mEq/L Normal 3.5-5.1 Chloride Level 108 mEq/L High 98-107 Carbon Dioxide Level 30 mEq/L Normal 21-32 Anion Gap 4 mEq/L Low 8-16 Calcium Level 8.6 mg/dL Normal 8.5-10.1 Laboratory test finding 01/30/2020 [facility] Outpatient T esting (Registration) [address] [place] [address] [phone] Lipase 98 U/L Normal 73-393 HCG Serum Qualitative NEGATIVE Normal Negative 1 FULL REPORT IN LAB NOTES (eC W and Medent). NORMAL BEV PRESENT ORGANISM 1: ESCHERICHIA COLI QUANTITY OF GROWTH MODERATE ORGANISM 1: ESCHERICHIA COLI ESCHERICHIA COLI: REACTION TRIMETHOPRIM/SULFAMETHOXAZOLE IV 160mg TMP & 800mg SMXq6h <=20 S TRIMETHOPRIM/SULFAMETHOXAZOLE PO Bactrim DS Bid <=20 S AMPICILLIN IV 500mg q6h 8 S AMPICILLIN PO 500mg q6h fasting 8 S GENTAMICIN IV 80mg q8h <=1 S CEFAZOLIN IV 1gm q8h <=4 S LEVOFLOXACIN IV 500mg qd <=0.12 S LEVOFLOXACIN PO 250mg qd <=0.12 S LEVOFLOXACIN PO 500mg qd <=0.12 S TOBRAMYCIN IV 80mg q8h <=1 S CEFTRIAXONE IV 1gm q24h <=1 S CEFTAZIDIME IV 1gm q8h <=1 S AMPICILLIN/SULBACTAM IV 1.5g q6h <=2 S PIPERACILLIN/TAZOBACTAM IV 2.25 gm q6h <=4 S AZTREONAM IV 1gm q8h <=1 S ERTAPENEM IV 1gm qd <=0.5 S MEROPENEM IV 1 gm q8h <=0.25 S MEROPENEM IV 500 mg q8h <=0.25 S TIGECYCLINE IV 50mg q12h <=0.5 S CEFEPIME IV 1 gm q12h <=1 S CEFEPIME IV 2 gm q12h <=1 S EXTD BRD SPCTRM BETA LACTAMASE IV NEGATIVE FOR ESBL 2 MANY EPITHELIAL CELLS PRESEN T MANY RBC MODERATE WBC MANY SHORT RODS PRESENT FEW CLUE CELLS PRESENT 3 A negative test result does not exclude the possibility of infection because test results may be affected by improper specimen collection, technical error, specimen mix-up, concurrent antibiotic therapy, or the number of organisms in the specimen which may be below the sensitivity of the test. 4 A negative test result does not exclude the possibility of infection because test results may be affected by improper specimen collection, technical error, specimen mix-up, concurrent antibiotic therapy, or the number of organisms in the specimen which may be below the sensitivity of the test. 5 A negative test result does not exclude the possibility of infection because test results may be affected by improper specimen collection, technical error, sample mix-up, or because the number of organisms in the sample is below the limit of detection of the test. 6 Units are mL/min/1.73 m2 Chronic Kidney Disease Staging per NKF: Stage I & II GFR >=60 Normal to Mildly Decreased Stage III GFR 30-59 Moderately Decreased Stage IV GFR 15-29 Severely Decreased Stage V GFR <15 Very Little GFR Left ESRD GFR <15 on ACID TESTER Procedures Description No Information Available Medical Devices Description No Information Available Encounters Type Date Location Provider Dx Diagnosis Office Visit 03/17/2020 1:10p [facility] Martha Trejo D.O. N76.0 Acute vaginitis Office Visit 03/11/2020 10:30a [facility] AQUILES Broussard F33.1 Major depressive disorder, r ecurrent, moderate G47.00 Insomnia, unspecified F17.210 Nicotine dependence, cigaret geovanni, uncomplicated N76.0 Acute vaginitis F43.0 Acute stress reaction Office Visit 02/09/2020 10:00a [facility] AQUILES Broussard N76.0 Acute vaginitis F33.1 Major depressive disorder, r ecurrent, moderate G47.00 Insomnia, unspecified F17.210 Nicotine dependence, cigaret geovanni, uncomplicated Assessments Date Code Description Provider 03/17/2020 N76.0 Acute vaginitis Martha choi D.O. 03/11/2020 F33.1 Major depressive disorder, recur rent, moderate AQUILES Broussard 03/11/2020 G47.00 Insomnia, unspecified AQUILES Apple 03/11/2020 F17.210 Nicotine dependence, cigarettes, uncomplicated AQUILES Broussard 03/11/2020 N76.0 Acute vaginitis AQUILES Broussard 03/11/2020 F43.0 Acute stress reaction AQUILES Apple 02/09/2020 N76.0 Acute vaginitis AQUILES Broussard 02/09/2020 F33.1 Major depressive disorder, recur rent, moderate AQUILES Broussard 02/09/2020 G47.00 Insomnia, unspecified AQUILES Apple 02/09/2020 F17.210 Nicotine dependence, cigarettes, uncomplicated AQUILES Broussard Plan of Treatment Future Appointment(s):* 09/14/2020 1:30 pm - Martha Trejo D.O. at [facility] * 06/09/2020 11:20 am - AQUILES Broussard at [facility] Functional Status Description No Information Available Mental Status Description No Information Available Referrals Description No Information Available
--- OUTSIDE RECORDS SUMMARY | 2020-04-06 13:00 | CCD | Continuity of Care Document ---
Author Author Dariela TREJO Organization Unknown Address [address] [place] [address] Phone [phone] Care Team Providers Care Industrial Relations Analyst Name Role Phone Martha Trejo D.O. AUTM [phone] Problems Active Problems Provider Date Insomnia AQUILES [...] 12 hour x 7 days 14tabs N76.0 Laureen Tiwari 03/17/2020 Diflucan 150mg Tablets one tablet in 4 days (halways through antibiotic course) and send tablet in 7 days 2tabs N76.0 Martha Trejo D.O. 03/17/2020 Sertraline HCL 100mg Tablets 1 by mouth every day 90tabs F33.1 Estephania TiwariOLedy 03/11 Chantix Starting Month Jeffery 0.5mg X 11 & 1 mg X 42 Tablets take as directed. 53tabs F17.210 Martha Trejo D.O. 03/11/2020 Alprazolam 0.5mg Tablets take one tablet [...] F O2 % BldC Oximetry 98 % [place] Body Weight 115 lb 03/11/2020 10:32am BP Systolic 116 mmHg BP Diastolic 84 mmHg Height 63.6 inches 5'3.60" Weight 109.12 lb BMI (Body Mass Index) 19.0 kg/m2 Heart Rate 78 /min Respiratory Rate 18 /min Body Temperature 97.5 F O2 % BldC Oximetry 99 % [place] Body Weight 115 lb Results Test Acquired Date Facility Test Result H/L Range Note Laboratory test finding 03/11/[address] [address] [phone] Genital Culture FULL REPORT IN L <SEE NOTE> Normal 1 Wet [place] Trichomonas 01/30/2020 [facility] Outpatient Geovanni ting (Registration) [address] [place] [address] [phone] Wet Prep WET PREP RESULT Normal 2 Chlamydia, GC & Trich Amp 01/30/2020 [facility] Outpatient Testing (Registration) [address] [place] [address] [phone] Chlamydia Dna Amplification NEGATIVE Normal Nega tive 3 GC Dna Amplification NEGATIVE Normal Negative 4 Trichomonas vaginalis (Amp) NOT DETECTED Normal Negative 5 Ua W/ Reflex To Culture 01/30/2020 [facility] Outpatient T esting (Registration) [address] [place] [address] [phone] Appearance, Urine RFX HAZY Normal Clear Color, Urine RFX YELLOW Normal Yellow PH,Urine RFX 6.0 units Normal 5.0-9.0 Specific [place] Ur Auto RFX 1.005 Normal 1.002-1.035 Protein, [...] /LPF Normal 0-1 CBC With Differential 01/30/2020 [facility] Outpatient Geovanni ting (Registration) [address] [place] [address] [phone] White Blood Count 9.0 10 Normal 4.0-10.0 [...] 36.0-66.0 Lymph % 28.3 % Normal 24.0-44.0 [place] % 6.4 % High 0.0-5.0 Eos % 1.7 % Normal 0.0-3.0 Baso % 0.2 % Normal 0.0-1.0 Immature Granulocyte % 0.2 % Normal 0-3.0 Nucleated Red Blood Cell % 0.0 % Normal 0-0 Neutrophils # 5.7 10 Normal 1.5-8.5 Lymph # 2.6 10 Normal 1.5-5.0 [place] # 0.6 10 Normal 0.0-0.8 Eos # 0.2 10 Normal 0.0-0.5 Baso # 0.0 10 Normal 0.0-0.2 Liver Profile 01/30/2020 [facility] Outpatient Testi ng (Registration) [address] [place] [address] [phone] Ast/Sgot 16 U/L Normal 7-37 Alt/SGPT 11 U/L Low 12-78 Alkaline Phosphatase 70 U/L Normal 45-117 Bilirubin,Total 0.3 mg/dL Normal 0.2-1.0 Bilirubin,Direct 0.1 mg/dL Normal 0.0-0.2 Total Protein 7.2 GM/DL Normal 6.4-8.2 Albumin 4.1 GM/DL Normal 3.2-5.2 Albumin/Globulin Ratio 1.3 Normal 1.2-2.2 Basic Metabolic Profile 01/30/2020 [facility] Outpatient T esting (Registration) [address] [place] [address] [phone] Glucose, Fasting 109 mg/dL High 70-100 Blood [...] mg/dL Normal 8.5-10.1 Laboratory test finding 01/30/2020 [facility] Outpatient T esting (Registration) [address] [place] [address] [phone] Lipase 98 U/L Normal 73-393 HCG Serum [...] Little GFR Left ESRD GFR <15 on CIVIL DESIGN SPECIALIST Procedures Description No Information Available Medical Devices Description No Information Available Encounters Type Date Location Provider Dx Diagnosis Office Visit 03/17/2020 1:10p [facility] Martha Trejo D.O. N76.0 Acute vaginitis Office Visit 03/11/2020 10:30a [facility] AQUILES Broussard F33.1 Major depressive disorder, r ecurrent, moderate G47.00 Insomnia, unspecified F17.210 Nicotine dependence, cigaret geovanni, uncomplicated N76.0 Acute vaginitis F43.0 Acute stress reaction Office Visit 02/09/2020 10:00a [facility] AQUILES Broussard N76.0 Acute vaginitis F33.1 Major [...] 1:30 pm - Martha Trejo D.O. at [facility] * 06/09/2020 11:20 am - AQUILES Broussard at [facility] Functional Status Description No Information Available Mental Status Description No Information Available Referrals Description No Information Available
--- OUTSIDE RECORDS SUMMARY | 2020-04-06 13:00 | CCD | Continuity of Care Document ---
Author Author Dariela TREJO Organization Unknown Address [address] [place] [address] Phone [phone] Care Team Providers Care Corrections Officer Name Role Phone Martha Trejo D.O. AUTM [phone] Problems Active Problems Provider Date Insomnia AQUILES [...] F O2 % BldC Oximetry 98 % [place] Body Weight 115 lb 03/11/2020 10:32am BP Systolic 116 mmHg BP Diastolic 84 mmHg Height 63.6 inches 5'3.60" Weight 109.12 lb BMI (Body Mass Index) 19.0 kg/m2 Heart Rate 78 /min Respiratory Rate 18 /min Body Temperature 97.5 F O2 % BldC Oximetry 99 % [place] Body Weight 115 lb Results Test Acquired Date Facility Test Result H/L Range Note Laboratory test finding 03/11/[address] [address] [phone] Genital Culture FULL REPORT IN L <SEE NOTE> Normal 1 Wet [place] Trichomonas 01/30/2020 [facility] Outpatient Geovanni ting (Registration) [address] [place] [address] [phone] Wet Prep WET PREP RESULT Normal 2 Chlamydia, GC & Trich Amp 01/30/2020 [facility] Outpatient Testing (Registration) [address] [place] [address] [phone] Chlamydia Dna Amplification NEGATIVE Normal Nega tive 3 GC Dna Amplification NEGATIVE Normal Negative 4 Trichomonas vaginalis (Amp) NOT DETECTED Normal Negative 5 Ua W/ Reflex To Culture 01/30/2020 [facility] Outpatient T esting (Registration) [address] [place] [address] [phone] Appearance, Urine RFX HAZY Normal Clear Color, Urine RFX YELLOW Normal Yellow PH,Urine RFX 6.0 units Normal 5.0-9.0 Specific [place] Ur Auto RFX 1.005 Normal 1.002-1.035 Protein, [...] /LPF Normal 0-1 CBC With Differential 01/30/2020 [facility] Outpatient Geovanni ting (Registration) [address] [place] [address] [phone] White Blood Count 9.0 10 Normal 4.0-10.0 [...] 36.0-66.0 Lymph % 28.3 % Normal 24.0-44.0 [place] % 6.4 % High 0.0-5.0 Eos % 1.7 % Normal 0.0-3.0 Baso % 0.2 % Normal 0.0-1.0 Immature Granulocyte % 0.2 % Normal 0-3.0 Nucleated Red Blood Cell % 0.0 % Normal 0-0 Neutrophils # 5.7 10 Normal 1.5-8.5 Lymph # 2.6 10 Normal 1.5-5.0 [place] # 0.6 10 Normal 0.0-0.8 Eos # 0.2 10 Normal 0.0-0.5 Baso # 0.0 10 Normal 0.0-0.2 Liver Profile 01/30/2020 [facility] Outpatient Testi ng (Registration) [address] [place] [address] [phone] Ast/Sgot 16 U/L Normal 7-37 Alt/SGPT 11 U/L Low 12-78 Alkaline Phosphatase 70 U/L Normal 45-117 Bilirubin,Total 0.3 mg/dL Normal 0.2-1.0 Bilirubin,Direct 0.1 mg/dL Normal 0.0-0.2 Total Protein 7.2 GM/DL Normal 6.4-8.2 Albumin 4.1 GM/DL Normal 3.2-5.2 Albumin/Globulin Ratio 1.3 Normal 1.2-2.2 Basic Metabolic Profile 01/30/2020 [facility] Outpatient T esting (Registration) [address] [place] [address] [phone] Glucose, Fasting 109 mg/dL High 70-100 Blood [...] mg/dL Normal 8.5-10.1 Laboratory test finding 01/30/2020 [facility] Outpatient T esting (Registration) [address] [place] [address] [phone] Lipase 98 U/L Normal 73-393 HCG Serum [...] Little GFR Left ESRD GFR <15 on [facility] Procedures Description No Information Available Medical Devices Description No Information Available Encounters Type Date Location Provider Dx Diagnosis Office Visit 03/17/2020 1:10p [facility] Martha Trejo D.O. N76.0 Acute vaginitis Office Visit 03/11/2020 10:30a [facility] AQUILES Broussard F33.1 Major depressive disorder, r ecurrent, moderate G47.00 Insomnia, unspecified F17.210 Nicotine dependence, cigaret geovanni, uncomplicated N76.0 Acute vaginitis F43.0 Acute stress reaction Office Visit 02/09/2020 10:00a [facility] AQUILES Broussard N76.0 Acute vaginitis F33.1 Major [...] 1:30 pm - Martha Trejo D.O. at [facility] * 06/09/2020 11:20 am - AQUILES Broussard at [facility] Functional Status Description No Information Available Mental Status Description No Information Available Referrals Description No Information Available
--- OUTSIDE RECORDS SUMMARY | 2020-04-06 13:01 | CCD ---
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 Name Role Phone Cris Real Unavailable Unavailable GIRMA-RANCHO, JENNIFER DO Unavailable Unavailable GIRMA-RANCHO, JENNIFER DO Unavailable Unavailable GIRMA-RANCHO, JENNIFER DO Unavailable Unavailable GIRMA-RANCHO, JENNIFER DO Unavailable Unavailable GIRMA-RANCHO, JENNIFER DO Unavailable Unavailable GIRMA-RANCHO, JENNIFER DO Unavailable Unavailable GIRMA-RANCHO, JENNIFER DO Unavailable Unavailable GIRMA-RANCHO, JENNIFER DO Unavailable Unavailable GIRMA-RANCHO, JENNIFER DO Unavailable Unavailable GIRMA-RANCHO, JENNIFER DO Unavailable Unavailable GIRMA-RANCHO, JENNIFER DO Unavailable Unavailable GIRMA-RANCHO, JENNIFER DO Unavailable Unavailable GIRMA-RANCHO, JENNIFER DO Unavailable Unavailable GIRMA-RANCHO, JENNIFER DO Unavailable Unavailable GIRMA-RANCHO, JENNIFER DO Unavailable Unavailable GIRMA-RANCHO, JENNIFER DO Unavailable Unavailable GIRMA-RANCHO, JENNIFER DO Unavailable Unavailable GIRMA-RANCHO, JENNIFER DO Unavailable Unavailable GIRMA-RANCHO, JENNIFER DO Unavailable Unavailable GIRMA-RANCOH, JENNIFER DO Unavailable Unavailable GIRMA-RANCHO, JENNIFER DO Unavailable Unavailable GIRMA-RANCHO, JENNIFER DO Unavailable Unavailable GIRMA-RANCHO, JENNIFER DO Unavailable Unavailable GIRMA-RANCHO, JENNIFER DO Unavailable Unavailable GIRMA-RANCHO, JENNIFER DO Unavailable Unavailable GIRMA-RANCHO, JENNIFER DO Unavailable Unavailable GIRMA-RANCHO, JENNIFER DO Unavailable Unavailable GIRMA-RANCHO, JENNIFER DO Unavailable Unavailable GIRMA-RANCHO, JENNIFER DO Unavailable Unavailable GIRMA-RANCHO, JENNIFER DO Unavailable Unavailable GIRMA-RANCHO, JENNIFER DO Unavailable Unavailable GIRMA-RANCHO, JENNIFER DO Unavailable Unavailable GIRMA-RANCHO, JENNIFER DO Unavailable Unavailable GIRMA-RANCHO, JENNIFER DO Unavailable Unavailable GIRMA-RANCHO, JENNIFER DO Unavailable Unavailable GIRMA-RANCHO, JENNIFER DO Unavailable Unavailable GIRMA-RANCHO, JENNIFER DO Unavailable Unavailable GIRMA-RANCHO, JENNIFER DO Unavailable Unavailable GIRMA-RANCHO, JENNIFER DO Unavailable Unavailable GIRMA-RANCHO, JENNIFER DO Unavailable Unavailable GIRMA-RANCHO, JENNIFER DO Unavailable Unavailable GIRMA-RANCHO, JENNIFER DO Unavailable Unavailable GIRMA-RANCHO, JENNIFER DO Unavailable Unavailable GIRMA-RANCHO, JENNIFER DO Unavailable Unavailable GIRMA-RANCHO, JENNIFER DO Unavailable Unavailable GIRMA-RANCHO, JENNIFER DO Unavailable Unavailable GIRMA-RANCHO, JENNIFER DO Unavailable Unavailable GIRMA-RANCHO, JENNIFER DO Unavailable Unavailable GIRMA-RANHCO, JENNIFER DO Unavailable Unavailable GIRMA-RANCHO, JENNIFER DO Unavailable Unavailable GIRMA-RANCHO, JENNIFER DO Unavailable Unavailable GIRMA-RANCHO, JENNIFER DO Unavailable Unavailable GIRMA-RANCHO, JENNIFER DO Unavailable Unavailable GIRMA-RANCHO, JENNIFER DO Unavailable Unavailable GIRMA-RANCHO, JENNIFER DO Unavailable Unavailable GIRMA-RANCHO, JENNIFER DO Unavailable Unavailable GIRMA-RANCHO, JENNIFER DO Unavailable Unavailable GIRMA-RANCHO, JENNIFER DO Unavailable Unavailable GIRMA-RANCHO, JENNIFER DO Unavailable Unavailable GIRMA-RANCHO, JENNIFER DO Unavailable Unavailable GIRMA-RANCHO, JENNIFER DO Unavailable Unavailable GIRMA-RANCHO, JENNIFER DO Unavailable Unavailable GIRMA-RANCHO, JENNIFER DO Unavailable Unavailable GIRMA-RANCHO, JENNIFER DO Unavailable Unavailable GIRMA-RANCHO, JENNIFER DO Unavailable Unavailable GIRMA-RANCHO, JENNIFER DO Unavailable Unavailable GIRMA-RANCHO, JENNIFER DO Unavailable Unavailable GIRMA-RANCHO, JENNIFER DO Unavailable Unavailable GIRMA-RANCHO, JENNIFER DO Unavailable Unavailable GIRMA-RANCHO, JENNIFER DO Unavailable Unavailable GIRMA-RANCHO, JENNIFER DO Unavailable Unavailable GIMRA-RANCHO, JENNIFER DO Unavailable Unavailable GIRMA-RANCHO, JENNIFER DO Unavailable Unavailable GIRMA-RANCHO, JENNIFER DO Unavailable Unavailable GIRMA-RANCHO, JENNIFER DO Unavailable Unavailable GIRMA-RANCHO, JENNIFER DO Unavailable Unavailable GIRMA-RANCHO, JENNIFER DO Unavailable Unavailable GIRMA-RANCHO, JENNIFER DO Unavailable Unavailable GIRMA-RANCHO, JENNIFER DO Unavailable Unavailable GIRMA-RANCHO, JENNIFER DO Unavailable Unavailable GIRMA-RANCHO, JENNIFER DO Unavailable Unavailable GIRMA-RANCHO, JENNIFER DO Unavailable Unavailable O'anand, A Luke PA Unavailable Unavailable O'anand, A Luke PA Unavailable Unavailable O'anand, A Luke PA Unavailable Unavailable O'anand, A Luke PA Unavailable Unavailable O'anand, A Luke PA Unavailable Unavailable O'anand, A Luke PA Unavailable Unavailable O'anand, A Luke PA Unavailable Unavailable O'anand, A Luke PA Unavailable Unavailable O'anand, A Luke PA Unavailable Unavailable O'anand, A Luke PA Unavailable Unavailable O'anand, A Luke PA Unavailable Unavailable O'anand, A Luke PA Unavailable Unavailable O'anand, A Luke PA Unavailable Unavailable O'anand, A Lkue PA Unavailable Unavailable O'anand, A Luke PA Unavailable Unavailable O'anand, A Luke PA Unavailable Unavailable O'anand, A Luke PA Unavailable Unavailable O'anand, A Luke PA Unavailable Unavailable O'anand, A Luke PA Unavailable Unavailable O'anand, A Luke PA Unavailable Unavailable O'anand, A Luke PA Unavailable Unavailable O'anand, A Luke PA Unavailable Unavailable O'anand, A Luke PA Unavailable Unavailable O'anand, A Luke PA Unavailable Unavailable O'anand, A Luke PA Unavailable Unavailable O'anand, A Luke PA Unavailable Unavailable O'anand, A Luke PA Unavailable Unavailable O'anand, A Luke PA Unavailable Unavailable O'anand, A Luke PA Unavailable Unavailable O'anand, A Luke PA Unavailable Unavailable O'anand, A Luke PA Unavailable Unavailable O'anand, A Luke PA Unavailable Unavailable Re-disclosure Warning The records that you are about to access may contain information from federally-assisted alcohol or drug abuse programs. If such information is present, then the following federally mandated warning applies: This information has been disclosed to you from records protected by federal confidentiality rules (42 CFR part 2). The federal rules prohibit you from making any further disclosure of this information unless further disclosure is expressly permitted by the written consent of the person to whom it pertains or as otherwise permitted by 42 CFR part 2. A general authorization for the release of medical or other information is NOT sufficient for this purpose. The Federal rules restrict any use of the information to criminally investigate or prosecute any alcohol or drug abuse patient.The records that you are about to access may contain highly sensitive health information, the redisclosure of which is protected by Article 27-F of the [facility] Public Health law. If you continue you may have access to information: Regarding HIV / AIDS; Provided by facilities licensed or operated by the [facility] Office of Mental Health; or Provided by the [facility] Office for People With Developmental Disabilities. If such information is present, then the following [facility] mandated warning applies: This information has been disclosed to you from confidential records which are protected by state law. State law prohibits you from making any further disclosure of this information without the specific written consent of the person to whom it pertains, or as otherwise permitted by law. Any unauthorized further disclosure in violation of state law may result in a fine or longterm sentence or both. A general authorization for the release of medical or other information is NOT sufficient authorization for further disc losure. Encounters Encounter Providers Location Date Indications Data Source(s ) Outpatient Attender: JENNIFER PETTIT DO [facility] 03/17/2020 12:10:00 PM EST [facility] ([facility]) Outpatient Attender: Luke KWAN [facility] 03/11/2020 09:30:00 AM EST [facility] ([facility]) Outpatient Attender: Luke KWAN [facility] 02/09/2020 09:00:00 AM EST [facility] ([facility]) Outpatient 12/03/2019 12:45:24 PM EDT [facility] ([facility]) Outpatient Attender: HALIMA DUENAS 04/17/2019 08:01:02 PM EST [facility] Medications Medication Brand Name Start Date Product Form Dose Route Admi nistrative Instructions Pharmacy Instructions Status Indications Reaction Description Data Source(s) Sulfamethoxazole 800 MG / Trimethoprim 160 MG Oral Tab let 800-160 mg SULFAMETHOXAZOLE/TRIMETHOPRIM 03/17/2020 12:00:00 AM EST tablet 14 TAKE 1 TABLET BY MOUTH EVERY 12 HOURS FOR 7 DAYS TAKE 1 TABLET BY MOUTH EVERY 12 HOURS FOR 7 DAYS SOLD: 03/17/2020 [facility] 150 mg 03/17/2020 12:00:00 AM EST tablet 2 TAKE 1 TABLET IN 4 DAYS (HALFWAYS THROUGH COURSE) AND THEN SECOND TABLET IN 7 DAYS TAKE 1 TABLET IN 4 DAYS (HALFWAYS THROUGH COURSE) AND THEN SECOND TABLET IN 7 DAYS SOLD: 03/17/2020 [facility] Fluconazole 150 MG Oral Tablet [Diflucan] Diflucan 03/17/2020 1 2:00:00 AM EST active [facility] ([facility]) Sulfamethoxazole 800 MG / Trimethoprim 160 MG Oral Tablet [B actrim] Bactrim DS 03/17/2020 12:00:00 AM EST ORAL active [facility] ([facility]) 0.5 mg (11)- 1 mg (42) 03/11/2020 12:00:00 AM EST tablets,do se pack 53 DIRECTED DIRECTED SOLD: 03/11/2020 [facility] Chantix Starting Month Jeffery Chantix Starting Month Jeffery 2020 12:00:00 AM EST active [facility] ([facility]) 100 mg 03/11/2020 12:00:00 AM EST tablet 90 TAKE ONE TABLET BY MOUTH EVERY DAY TAKE ONE TABLET BY MOUTH EVERY DAY SOLD: 03/11/2020 [facility] Alprazolam 0.5 MG Oral Tablet Alprazolam 03/11/2020 12:00:00 AM EST ORAL active [facility] ([facility]) Alprazolam 0.5 MG Oral Tablet ALPRAZOLAM 03/11/2020 12:00:00 AM EST ta blet 14 TAKE ONE TABLET BY MOUTH EVERY 12 HOURS NEEDED MAXIMUM DAILY DOSE = 2 TAKE ONE TABLET BY MOUTH EVERY 12 HOURS NEEDED MAXIMUM DAILY DOSE = 2 SOLD: 03/11/2020 [facility] Sertraline 100 MG Oral Tablet Sertraline HCL 03/11/2020 12:00:[address] ORAL active [facility] ([facility]) Sertraline 50 MG Oral Tablet Sertraline HCL 02/09/2020 12:00:00 AM EST ORAL completed [facility] ([facility]) Trazodone Hydrochloride 50 MG Oral Tablet Trazodone HCL 02/09/2020 12:00:00 AM EST ORAL active [facility] ([facility]) Metronidazole 500 MG Oral Tablet Metronidazole 02/09/2020 12:00:00 AM EST ORAL completed [facility] ([facility]) 50 mg 02/09/2020 12:00:00 AM EST tablet 30 TAKE ONE TABLET BY MOUTH EVERY DAY TAKE ONE TABLET BY MOUTH EVERY DAY SOLD: 02/09/2020 [facility] 50 mg 02/09/2020 12:00:00 AM EST tablet 90 TAKE ONE TABLET BY MOUTH AT BEDTIME TAKE ONE TABLET BY MOUTH AT BEDTIME SOLD: 02/09/2020 [facility] Metronidazole 500 MG Oral Tablet METRONIDAZOLE 02/09/2020 12:0 0:00 AM EST tablet 20 TAKE ONE TABLET BY MOUTH EVERY 1 2 HOURS FOR 10 DAYS TAKE ONE TABLET BY MOUTH EVERY 12 HOURS FOR 10 DAYS SOLD: 02/09/2020 [facility] Insurance Providers Payer name Policy type / Coverage type Policy ID Covered green party ID Covered green party's relationship to james Policy James Plan Information [facility] COMMUNITY PLAN [facility] [id number] SP [id number] SP [id number] SELF PAY ONLY [id number] SP [id number] Medicaid P [id number] S [id number] [facility] O [id number] S [id number] [facility] Other 0 Self 0 [facility] [id number] SP [id number] Medicaid P [id number] S [id number] [facility] [id number] SP [id number] MEDICAID [id number] SP [id number] [facility] PHCP [id number] SP [id number] SELF PAY ONLY [id number] SELF PAY ONLY [id number] SP [id number] UN COMMUNITY PLAN [facility] [id number] SP [id number] MEDICAID M [id number] Self [id number] [facility] UNAVAILABLE 18 UNAVAILABLE Medicaid Dental P [id number] S [id number] MEDICAID P [id number] S [id number] MEDICAID UNAVAILABLE SP UNAVAILA BLE D [facility] P 0 S 0 Problems, Conditions, and Diagnoses Code Display Name Description Problem Type Effective Dates Data Source(s) 739391130 Insomnia Insomnia Problem 03/11/2020 12:00:00 AM ES T [facility] ([facility]) [id number] Moderate recurrent major depression Mode rate recurrent major depression Problem 02/09/2020 12:00:00 AM EST [facility] ([facility]) Results ID Date Data Source [id number] 03/11/2020 11:05:00 AM EST [facility] ([facility]) Name Value Range Interpretation Code Description Data Sherrell rce(s) Supporting Document(s) Bacteria identified in Genital specimen by [facility] cult ure Laboratory test result Normal (applies to non-numeric results) [facility] ([facility]) <content>FULL REPORT IN LAB NOTES ([facility] a nd [facility]).</content>
<content>NORMAL BEV PRESENT</content>
<content></content>
<content>ORGANISM 1: ESCHERICHIA COLI</content>
<content></content>
<content>QUANTITY OF GROWTH MODERATE</content>
<content></content>
<content></content>
<content> ORGANISM 1: ESCHERICHIA COLI</content>
<content></content>
<content>ESCHERICHIA COLI: REACTION</content>
<content>TRIMETHOPRIM/SULFAMETHOXAZOLE IV 160mg TMP & 800mg SMXq6h <=20 S</content>
<content> TRIMETHOPRIM/SULFAMETHOXAZOLE PO Bactrim DS Bid <=20 S</content>
<content>AMPICILLIN IV 500mg q6h 8 S</content>
<content>AMPICILLIN PO 500mg q6h fasting 8 S</content>
<content>GENTAMICIN IV 80mg q8h <=1 S</content>
<content>CEFAZOLIN IV 1gm q8h <=4 S</content>
<content>LEVOFLOXACIN IV 500mg qd <=0.12 S</content>
<content> LEVOFLOXACIN PO 250mg qd <=0.12 S</content>
<content>LEVOFLOXACIN PO 500mg qd <=0.12 S</content>
<content>TOBRAMYCIN IV 80mg q8h <=1 S</content>
<content>CEFTRIAXONE IV 1gm q24h <=1 S</content>
<content>CEFTAZIDIME IV 1gm q8h <=1 S</content>
<content>AMPICILLIN/SULBACTAM IV 1.5g q6h <=2 S</content>
<content>PIPERACILLIN/TAZOBACTAM IV 2.25 gm q6h <=4 S</content>
<content>AZTREONAM IV 1gm q8h <=1 S</content>
<content>ERTAPENEM IV 1gm qd <=0.5 S</content>
<content>MEROPENEM IV 1 gm q8h <=0.25 S</content>
<content> MEROPENEM IV 500 mg q8h <=0.25 S</content>
<content>TIGECYCLINE IV 50mg q12h <=0.5 S</content>
<content>CEFEPIME IV 1 gm q12h <=1 S</content>
<content>CEFEPIME IV 2 gm q12h <=1 S</content>
<content>EXTD BRD SPCTRM BETA LACTAMASE IV NEGATIVE FOR ESBL</content>
<content></content> ID Date Data Source [id number] 01/30/2020 09:45:00 PM [facility]) Name Value Range Interpretation Code Description Data Sherrell rce(s) Supporting Document(s) Chlamydia Dna Amplification Laboratory test result Normal (applies to non- numeric results) [facility] ([facility]) A negative test result does not exclude the possibility of infection because test results may be affected by improper specimen collection, technical error, specimen mix-up, concurrent antibiotic therapy, or the number of organisms in the specimen which may be below the sensitivity of the test. Laboratory test finding (navigational concept) Laboratory test r esult Normal (applies to non-numeric results) [facility] ([facility]) A negative test result does not exclude the possibility of infection because test results may be affected by improper specimen collection, technical error, sample mix-up, or because the number of organisms in the sample is below the limit of detection of the test. GC Dna Amplification Laboratory test result Norm al (applies to non-numeric results) [facility] ([facility]) A negative test result does not exclude the possibility of infection because test results may be affected by improper specimen collection, technical error, specimen mix-up, concurrent antibiotic therapy, or the number of organisms in the specimen which may be below the sensitivity of the test. ID Date Data Source [id number] 01/30/2020 09:45:[address] [facility]) Name Value Range Interpretation Code Description Data Sherrell rce(s) Supporting Document(s) Wet Prep Laboratory test result Normal (applies to non-n umeric results) [facility] ([facility]) MANY EPITHELIAL CELLS PRESENT MANY RBC MODERATE WBC MANY SHORT RODS PRESENT FEW CLUE CELLS PRESENT ID Date Data Source [id number] 01/30/2020 09:45:00 PM EST [facility] Name Value Range Interpretation Code Description Data Sherrell rce(s) Supporting Document(s) SARS coronavirus 2 RNA [Presence] in Res piratory specimen by CATHLEEN with probe detection [facility] This lab was ordered by [facility] a nd reported by [facility]. ID Date Data Source [id number] 01/30/2020 09:10:00 PM EST [facility] ([facility]) Name Value Range Interpretation Code Description Data Sherrell rce(s) Supporting Document(s) Choriogonadotropin.beta subunit ( test) [Pres ence] in Serum or Plasma Laboratory test result Normal (applies to non-numeric results) [facility] ([facility]) Lipase [Enzymatic activity/volume] in Serum or Plasma 98 U/L 73-393 Normal (applies to non-numeric results) [facility] ([facility]) ID Date Data Source [id number] 01/30/2020 09:10:00 PM EST [facility] ([facility]) Name Value Range Interpretation Code Description Data Sherrell rce(s) Supporting Document(s) Blood Urea Nitrogen 8 mg/dL 7-18 Normal (applies to non-nume farzaneh results) [facility] ([facility]) Glucose, Fasting 109 mg/dL 70-100 Above high normal [facility] ([facility]) Glomerular Filtration Rate Laboratory test result Normal (applies to non- numeric results) [facility] ([facility]) <content>Units are mL/min/1.73 m2</content>
<content></content>
<content>Chronic Kidney Disease Staging per NKF:</content>
<content></content>
<content>Stage I & II GFR >=60 Normal to Mildly Decreased</content>
<content>Stage III GFR 30-59 Moderately Decreased</content>
<content>Stage IV GFR 15-29 Severely Decreased</content>
<content>Stage V GFR <15 Very Little GFR Left</content>
<content>ESRD GFR <15 on REDUCING SALON ATTENDANT</content>
<content></content> Creatinine For GFR 0.73 mg/dL 0.55-1.30 Normal (applies to non -numeric results) [facility] ([facility]) Sodium Level 142 meq/L 136-145 Normal (applies to non-numeric res ults) [facility] ([facility]) Carbon Dioxide Level 30 meq/L 21-32 Normal (applies to non-num gaviota results) [facility] ([facility]) Potassium Serum 3.7 meq/L 3.5-5.1 Normal (applies to non-numeric results) [facility] ([facility]) Chloride Level 108 meq/L 98-107 Above high normal [facility] ([facility]) Calcium Level 8.6 mg/dL 8.5-10.1 Normal (applies to non-numeric re sults) [facility] ([facility]) Anion Gap 4 meq/L 8-16 Below low normal [facility] ( [facility]) ID Date Data Source [id number] 01/30/2020 09:10:00 PM EST [facility] ([facility]) Name Value Range Interpretation Code Description Data Sherrell rce(s) Supporting Document(s) Alkaline Phosphatase 70 U/L 45-117 Normal (applies to non-num gaviota results) [facility] ([facility]) Alt/SGPT 11 U/L 12-78 Below low normal [facility] ( [facility]) Ast/Sgot 16 U/L 7-37 Normal (applies to non-numeric resul ts) [facility] ([facility]) Bilirubin,Direct 0.1 mg/dL 0.0-0.2 Normal (applies to non-numeric results) [facility] ([facility]) Total Protein 7.2 GM/DL 6.4-8.2 Normal (applies to non-numeric re sults) [facility] ([facility]) Bilirubin,Total 0.3 mg/dL 0.2-1.0 Normal (applies to non-numeric results) [facility] ([facility]) Albumin/Globulin Ratio 1.3 1.2-2.2 Normal (applies to non-n umeric results) [facility] ([facility]) Albumin 4.1 GM/DL 3.2-5.2 Normal (applies to non-numeric resul ts) [facility] ([facility]) ID Date Data Source [id number] 01/30/2020 09:10:00 PM EST [facility] ([facility]) Name Value Range Interpretation Code Description Data Sherrell rce(s) Supporting Document(s) White Blood Count 9.0 10 4.0-10.0 Normal (applies to non-numeri c results) [facility] ([facility]) Hematocrit 44.6 % 36.0-47.0 Normal (applies to non-numeric resul ts) [facility] ([facility]) Red Blood Count 4.73 10 4.00-5.40 Normal (applies to non-numeric results) [facility] ([facility]) Hemoglobin 14.2 g/dL 12.0-15.5 Normal (applies to non-numeric resul ts) [facility] ([facility]) Mean Corpuscular Hemoglobin 30.0 pg 27.0-33.0 Norm al (applies to non-numeric results) [facility] ([facility]) Mean Corpuscular Volume 94.3 fl 80.0-96.0 Normal ( applies to non-numeric results) [facility] ([facility]) Mean Corpuscular HGB Conc 31.8 g/dL 32.0-36.5 Below low normal [facility] ([facility]) Neutrophils % 63.2 % 36.0-66.0 Normal (applies to non-numeric re sults) [facility] ([facility]) Red Cell Distribution Width 12.7 % 11.5-14.5 Norm al (applies to non-numeric results) [facility] ([facility]) Platelet Count, Automated 227 10 150-450 Normal (applies to non-numeric results) [facility] ([facility]) [place] % 6.4 % 0.0-5.0 Above high normal [facility] ([facility]) Lymph % 28.3 % 24.0-44.0 Normal (applies to non-numeric resul ts) [facility] ([facility]) Eos % 1.7 % 0.0-3.0 Normal (applies to non-numeric resul ts) [facility] ([facility]) Baso % 0.2 % 0.0-1.0 Normal (applies to non-numeric resul ts) [facility] ([facility]) Immature Granulocyte % 0.2 % 0-3.0 Normal (applies to non-n umeric results) [facility] ([facility]) Nucleated Red Blood Cell % 0.0 % 0-0 Normal (applies to n on-numeric results) [facility] ([facility]) Neutrophils # 5.7 10 1.5-8.5 Normal (applies to non-numeric re sults) [facility] ([facility]) Lymph # 2.6 10 1.5-5.0 Normal (applies to non-numeric resul ts) [facility] ([facility]) [place] # 0.6 10 0.0-0.8 Normal (applies to non-numeric resul ts) [facility] ([facility]) Eos # 0.2 10 0.0-0.5 Normal (applies to non-numeric resul ts) [facility] ([facility]) Baso # 0.0 10 0.0-0.2 Normal (applies to non-numeric resul ts) [facility] ([facility]) ID Date Data Source [id number] 01/30/2020 09:10:00 PM EST [facility] ([facility]) Name Value Range Interpretation Code Description Data Sherrell rce(s) Supporting Document(s) Appearance, Urine RFX Laboratory test result Nor mal (applies to non-numeric results) [facility] ([facility]) Color, Urine RFX Laboratory test result Normal ( applies to non-numeric results) [facility] ([facility]) PH,Urine RFX 6.0 units 5.0-9.0 Normal (applies to non-numeric res ults) [facility] ([facility]) Protein, Urine Auto RFX Laboratory test result N ormal (applies to non-numeric results) [facility] ([facility]) Specific Phillips Ur Auto RFX 1.005 1.002-1.035 Nor mal (applies to non-numeric results) [facility] ([facility]) Urobilinogen, Urine Auto RFX 0.2 mg/dL 0.0-2.0 Nor mal (applies to non-numeric results) [facility] ([facility]) Glucose, Urine (Ua) Auto RFX Laboratory test result Normal (applies to non- numeric results) [facility] ([facility]) Ketone, Urine Auto RFX Laboratory test result No rmal (applies to non-numeric results) [facility] ([facility]) Nitrite, Urine Auto RFX Laboratory test result N ormal (applies to non-numeric results) [facility] ([facility]) Leukocyte Esterase Ur Auto RFX Laboratory test result Normal (applies to non- numeric results) [facility] ([facility]) Bilirubin, Urine Auto RFX Laboratory test result Normal (applies to non- numeric results) [facility] ([facility]) Blood, Urine Blood RFX Laboratory test result No rmal (applies to non-numeric results) [facility] ([facility]) WBC, Urine Auto RFX 1 /HPF 0-3 Normal (applies to non-nume farzaneh results) [facility] ([facility]) RBC, Urine Auto RFX 1 /HPF 0-3 Normal (applies to non-nume farzaneh results) [facility] ([facility]) Squam Epithelial Cell Ur Aurfx 8 /HPF 0-6 N ormal (applies to non-numeric results) [facility] ([facility]) Bacteria, Urine Auto RFX Laboratory test result Normal (applies to non-numeric results) [facility] ([facility]) Hyaline Cast, Urine Auto RFX 0 /LPF 0-1 Normal (appl ies to non-numeric results) [facility] ([facility]) ID Date Data Source [id number] 12/03/2019 01:35:00 PM EDT [facility] ([facility]) Chest two views Indication: cough Compar jeanie: None Technique: PA and lateral (two views) of the chest. Findings:Cardiac silhouette and mediastinal contours are within normal limits. The lungs are clear. No pleural effusion or pneumothorax. Mild to moderate dextrocurvature centered at T7-8. No sagittal spondylolisthesis. IMPRESSION:No acute cardiopulmonary disease process. Scoliosis. Professional interpretation performed at the [facility] . Name Value Range Interpretation Code Description Data Sherrell rce(s) Supporting Document(s) ID Date Data Source [id number] 12/03/2019 12:00:00 AM EDT [facility] ([facility]) Name Value Range Interpretation Code Description Data Sherrell rce(s) Supporting Document(s) 2018 Novel Coronavirus RNA DREA RTMAKER ([facility]) This lab was ordered by [facility] are and reported by [facility]. Procedure Vital Signs ID Date Data Source UNK Name Value Range Interpretation Code Description Data Source(s) [facility] body weight 115 [lb_av] 115 [lb_av] [facility] ([facility]) Oxygen saturation in Arterial blood by Pulse oximetry 98 % 98 % [facility] ([facility]) Body temperature 97.8 [degF] 97.8 [degF] [facility] ([facility]) Respiratory rate 22 /min 22 /min [facility] ( [facility]) Heart rate 96 /min 96 /min [facility] ([facility]) Body mass index (BMI) [Ratio] 18.2 kg/m2 18.2 k g/m2 [facility] ([facility]) Body weight 104.50 [lb_av] 104.50 [lb_av] [facility] ([facility]) Body height 63.6 [in_i] 63.6 [in_i] [facility] ([facility]) 5'3.60" Diastolic blood pressure 76 mm[Hg] 76 mm[Hg] [facility] ([facility]) Systolic blood pressure 110 mm[Hg] 110 mm[Hg] M [facility] ([facility]) [facility] body weight 115 [lb_av] 115 [lb_av] [facility] ([facility]) Oxygen saturation in Arterial blood by Pulse oximetry 99 % 99 % [facility] ([facility]) Body temperature 97.5 [degF] 97.5 [degF] [facility] ([facility]) Respiratory rate 18 /min 18 /min [facility] ( [facility]) Heart rate 78 /min 78 /min [facility] ([facility]) Body mass index (BMI) [Ratio] 19.0 kg/m2 19.0 k g/m2 [facility] ([facility]) Body weight 109.12 [lb_av] 109.12 [lb_av] [facility] ([facility]) Body height 63.6 [in_i] 63.6 [in_i] [facility] ([facility]) 5'3.60" Diastolic blood pressure 84 mm[Hg] 84 mm[Hg] [facility] ([facility]) Systolic blood pressure 116 mm[Hg] 116 mm[Hg] [facility] body weight 115 [lb_av] 115 [lb_av] [facility] ([facility]) Oxygen saturation in Arterial blood by Pulse oximetry 97 % 97 % [facility] ([facility]) Body temperature 98.6 [degF] 98.6 [degF] [facility] ([facility]) Respiratory rate 18 /min 18 /min [facility] ( [facility]) Heart rate 91 /min 91 /min [facility] ([facility]) Body mass index (BMI) [Ratio] 19.0 kg/m2 19.0 k g/m2 [facility] ([facility]) Body weight 109.12 [lb_av] 109.12 [lb_av] [facility] ([facility]) Body height 63.6 [in_i] 63.6 [in_i] [facility] ([facility]) 5'3.60" Diastolic blood pressure 62 mm[Hg] 62 mm[Hg] [facility] ([facility]) Systolic blood pressure 104 mm[Hg] 104 mm[Hg] [facility])
--- OUTSIDE RECORDS SUMMARY | 2020-04-06 13:01 | CCD | Continuity of Care Document ---
Author Author Dariela GARCIA Organization [place] [address] Phone [phone] Care Team Providers Care Finishing Lab Technician Name Role Phone Martha Trejo D.O. AUTM [phone] Problems Active Problems Provider Date Insomnia AQUILES [...] SIG Qnty Indications Ordering Provide r Date Sertraline HCL 100mg Tablets 1 by mouth every day 90tabs F33.1 Martha Trejo D.O. 03/11 Chantix Starting Month Jeffery 0.5mg X 11 & 1 mg X 42 Tablets take as directed. 53tabs F17.210 Martha Trejo D.O. 03/11/2020 Alprazolam 0.5mg Tablets take one tablet by mouth every 12 hours as needed 14tabs F43.0 Martha Bello D.O. 03/11/2020 Trazodone HCL 50mg Tablets take 1 tablet by mouth every night at bedtime 90tabs G47.00 Estephania BlackOLedy 02/09/2020 Albuterol Sulfate HFA 108(90Base) mcg/Act Aerosol [...] Available Vital Signs Date Vital Result Comment 03/11/2020 10:32am BP Systolic 116 mmHg BP Diastolic 84 mmHg Height 63.6 inches 5'3.60" Weight 109.12 lb BMI (Body Mass Index) 19.0 kg/m2 Heart Rate 78 /min Respiratory Rate 18 /min Body Temperature 97.5 F O2 % BldC Oximetry 99 % [place] Body Weight 115 lb 02/09/2020 10:08am BP Systolic 104 mmHg BP Diastolic 62 mmHg Height 63.6 inches 5'3.60" Weight 109.12 lb BMI (Body Mass Index) 19.0 kg/m2 Heart Rate 91 /min Respiratory Rate 18 /min Body Temperature 98.6 F O2 % BldC Oximetry 97 % [place] Body Weight 115 lb Results Test Acquired Date Facility Test Result H/L Range Note Wet [place] Trichomonas 01/30/2020 [facility] Outpatient Geovanni ting (Registration) [address] [place] [address] [phone] Wet Prep WET PREP RESULT Normal 1 Chlamydia, GC & Trich Amp 01/30/2020 [facility] Outpatient Testing (Registration) [address] [place] [address] [phone] Chlamydia Dna Amplification NEGATIVE Normal Nega tive 2 GC Dna Amplification NEGATIVE Normal Negative 3 Trichomonas vaginalis (Amp) NOT DETECTED Normal Negative 4 Ua W/ Reflex To Culture 01/30/2020 [facility] Outpatient T esting (Registration) [address] [place] [address]16 [phone] Appearance, Urine RFX HAZY Normal Clear Color, Urine RFX YELLOW Normal Yellow PH,Urine RFX 6.0 units Normal 5.0-9.0 Specific [place] Ur Auto RFX 1.005 Normal 1.002-1.035 Protein, [...] /LPF Normal 0-1 CBC With Differential 01/30/2020 [facility] Outpatient Geovanni maya (Registration) [address] [place] [address] [phone] White Blood Count 9.0 10 Normal 4.0-10.0 [...] 36.0-66.0 Lymph % 28.3 % Normal 24.0-44.0 Martin % 6.4 % High 0.0-5.0 Eos % 1.7 % Normal 0.0-3.0 Baso % 0.2 % Normal 0.0-1.0 Immature Granulocyte % 0.2 % Normal 0-3.0 Nucleated Red Blood Cell % 0.0 % Normal 0-0 Neutrophils # 5.7 10 Normal 1.5-8.5 Lymph # 2.6 10 Normal 1.5-5.0 Martin # 0.6 10 Normal 0.0-0.8 Eos # 0.2 10 Normal 0.0-0.5 Baso # 0.0 10 Normal 0.0-0.2 Liver Profile 01/30/2020 [facility] Outpatient Testi ng (Registration) [address] [place] [address] [phone] Ast/Sgot 16 U/L Normal 7-37 Alt/SGPT 11 U/L Low 12-78 Alkaline Phosphatase 70 U/L Normal 45-117 Bilirubin,Total 0.3 mg/dL Normal 0.2-1.0 Bilirubin,Direct 0.1 mg/dL Normal 0.0-0.2 Total Protein 7.2 GM/DL Normal 6.4-8.2 Albumin 4.1 GM/DL Normal 3.2-5.2 Albumin/Globulin Ratio 1.3 Normal 1.2-2.2 Basic Metabolic Profile 01/30/2020 [facility] Outpatient T esting (Registration) [address] [place] [address] [phone] Glucose, Fasting 109 mg/dL High 70-100 Blood Urea Nitrogen 8 mg/dL Normal 7-18 Creatinine For GFR 0.73 mg/dL Normal 0.55-1.30 Glomerular Filtration Rate > 60.0 Normal >60 5 Sodium Level 142 mEq/L Normal 136-145 Potassium Serum 3.7 mEq/L Normal 3.5-5.1 Chloride Level 108 mEq/L High 98-107 Carbon Dioxide Level 30 mEq/L Normal 21-32 Anion Gap 4 mEq/L Low 8-16 Calcium Level 8.6 mg/dL Normal 8.5-10.1 Laboratory test finding 01/30/2020 [facility] Outpatient T esting (Registration) [address] [place] [address]10 [phone] Lipase 98 U/L Normal 73-393 HCG Serum Qualitative NEGATIVE Normal Negative 1 MANY EPITHELIAL CELLS PRESEN T MANY RBC MODERATE WBC MANY SHORT RODS PRESENT FEW CLUE CELLS PRESENT 2 A negative test result does not exclude the possibility of infection because test results may be affected by improper specimen collection, technical error, specimen mix-up, concurrent antibiotic therapy, or the number of organisms in the specimen which may be below the sensitivity of the test. 3 A negative test result does not [...] the limit of detection of the test. 5 Units are mL/min/1.73 m2 Chronic Kidney Disease Staging per NKF: Stage I & II GFR >=60 Normal to Mildly Decreased Stage III GFR 30-59 Moderately Decreased Stage IV GFR 15-29 Severely Decreased Stage V GFR <15 Very Little GFR Left ESRD GFR <15 on NEW [employer] DR[employer] Procedures Description No Information Available Medical Devices Description No Information Available Encounters Type Date Location Provider Dx Diagnosis Office Visit 03/11/2020 10:30a [facility] AQUILES Broussard F33.1 Major depressive disorder, r ecurrent, moderate G47.00 Insomnia, unspecified F17.210 Nicotine dependence, cigaret geovanni, uncomplicated N76.0 Acute vaginitis F43.0 Acute stress reaction Office Visit 02/09/2020 10:00a [facility] AQUILES Broussard N76.0 Acute vaginitis F33.1 Major depressive disorder, r ecurrent, moderate G47.00 Insomnia, unspecified F17.210 Nicotine dependence, cigaret geovanni, uncomplicated Assessments Date Code Description Provider 03/11/2020 F33.1 Major depressive disorder, recur rent, [...] AQUILES Broussard Plan of Treatment Future Appointment(s):* 06/09/2020 11:20 am - AQUILES Broussard at [facility] * 03/17/2020 1:10 pm - Martha Trejo D.O. at [facility] Functional Status Description No Information Available Mental Status Description No Information Available Referrals Description No Information Available
--- OUTSIDE RECORDS SUMMARY | 2020-04-06 13:01 | CCD | Continuity of Care Document ---
Author Author Dariela GARCIA Organization [place] [address] Phone [phone] Care Team Providers Care Subject Scientific Research Name Role Phone Martha Trejo D.O. AUTM [phone] Problems Active Problems Provider Date Moderate recurrent major depression AQUILES Broussard Onse [...] SIG Qnty Indications Ordering Provide r Date Metronidazole 500mg Tablets one tablet by mouth every 12 hours for 10 days 20tabs N76.0 Martha blake D.O. 02/09/2020 Sertraline HCL 50mg Tablets 1 by mouth every day 30tabs F33.1 Martha Trejo D.O. 02/08 Trazodone HCL 50mg Tablets take 1 tablet by mouth every night at bedtime 90tabs G47.00 Martha choi D.O. 02/09/2020 Albuterol Sulfate HFA 108(90Base) mcg/Act Aerosol Inhale Two Puffs By Mouth Every 4 Hours U nknown Immunizations Description No Information Available Vital Signs Date Vital Result Comment 02/09/2020 10:08am BP Systolic 104 mmHg BP Diastolic 62 mmHg Height 63.6 inches 5'3.60" Weight 109.12 lb BMI (Body Mass Index) 19.0 kg/m2 Heart Rate 91 /min Respiratory Rate 18 /min Body Temperature 98.6 F O2 % BldC Oximetry 97 % [place] Body Weight 115 lb Results Test Acquired Date Facility Test Result H/L Range Note Wet [place] Trichomonas 01/30/2020 [facility] Outpatient Annemarie ting (Registration) [address] [place] [address] [phone] Wet Prep WET PREP RESULT Normal 1 Chlamydia, GC & Trich Amp 01/30/2020 [facility] Outpatient Testing (Registration) [address] [place] [address] 14859 [phone] Chlamydia Dna Amplification NEGATIVE Normal Nega tive 2 GC Dna Amplification NEGATIVE Normal Negative 3 Trichomonas vaginalis (Amp) NOT DETECTED Normal Negative 4 Ua W/ Reflex To Culture 01/30/2020 [facility] Outpatient T esting (Registration) [address] [place] [address] 42800 [phone] Appearance, Urine RFX HAZY Normal Clear Color, Urine RFX YELLOW Normal Yellow PH,Urine RFX 6.0 units Normal 5.0-9.0 Specific [place] Ur Auto RFX 1.005 Normal 1.002-1.035 Protein, [...] /LPF Normal 0-1 CBC With Differential 01/30/2020 [facility] Outpatient Annemarie ting (Registration) [address] [place] [address] 89779 [phone] White Blood Count 9.0 10 Normal 4.0-10.0 [...] 36.0-66.0 Lymph % 28.3 % Normal 24.0-44.0 [place] % 6.4 % High 0.0-5.0 Eos % 1.7 % Normal 0.0-3.0 Baso % 0.2 % Normal 0.0-1.0 Immature Granulocyte % 0.2 % Normal 0-3.0 Nucleated Red Blood Cell % 0.0 % Normal 0-0 Neutrophils # 5.7 10 Normal 1.5-8.5 Lymph # 2.6 10 Normal 1.5-5.0 [place] # 0.6 10 Normal 0.0-0.8 Eos # 0.2 10 Normal 0.0-0.5 Baso # 0.0 10 Normal 0.0-0.2 Liver Profile 01/30/2020 [facility] Outpatient Testi ng (Registration) [address] [place] [address] 63054 [phone] Ast/Sgot 16 U/L Normal 7-37 Alt/SGPT 11 U/L Low 12-78 Alkaline Phosphatase 70 U/L Normal 45-117 Bilirubin,Total 0.3 mg/dL Normal 0.2-1.0 Bilirubin,Direct 0.1 mg/dL Normal 0.0-0.2 Total Protein 7.2 GM/DL Normal 6.4-8.2 Albumin 4.1 GM/DL Normal 3.2-5.2 Albumin/Globulin Ratio 1.3 Normal 1.2-2.2 Basic Metabolic Profile 01/30/2020 [facility] Outpatient T esting (Registration) [address] [place] [address] 56649 [phone] Glucose, Fasting 109 mg/dL High 70-100 Blood [...] mg/dL Normal 8.5-10.1 Laboratory test finding 01/30/2020 [facility] Outpatient T huan (Registration) [address] [place] [address] [phone] Lipase 98 U/L Normal 73-393 HCG Serum [...] Little GFR Left ESRD GFR <15 on CR[employer] Procedures Description No Information Available Medical Devices Description No Information Available Encounters Description No Information Available Assessments Date Code Description Provider 02/09/2020 N76.0 Acute vaginitis AQUILES Broussard 02/09/2020 F33.1 Major depressive disorder, recur rent, moderate AQUILES Broussard 02/09/2020 G47.00 Insomnia, unspecified AQUILES Apple Plan of Treatment Future Appointment(s):* 03/11/2020 10:30 am - AQUILES Broussard at [facility] 02/09/2020 - AQUILES Broussard* N76.0 Acute vaginitis* New Medication:* Metronidazole 500 mg - one tablet by mouth every 12 hours for 10 days * Comments:* Recent Visit to Er revealed Clue Cells and suggestive of Bacterial Vaginosis. Prescription sent in for Flagyl Antibiotic. * F33.1 Major depressive disorder, recurrent, moderate* New Medication:* Sertraline HCL 50 mg - 1 by mouth every day * Comments:* [facility] [address] [place], [place] [address]Nkxtp: [phone] call to establish a therapist and psychiatrist to help manage your mental health. * Follow up:* 1 month * G47.00 Insomnia, unspecified* New Medication:* Trazodone HCL 50 mg - take 1 tablet by mouth every night at bedtime * Comments:* We will start Trazodone to help with your excessive thoughts and inability to fall asleep. Functional Status Description No Information Available Mental Status Description No Information Available Referrals Description No Information Available
--- OUTSIDE RECORDS SUMMARY | 2020-04-06 13:01 | CCD | Continuity of Care Document ---
Author Author Dariela GARCIA Organization [place] [address] Phone [phone] Care Team Providers Care Senior Java [id number] Developer Name Role Phone Martha Trejo D.O. AUTM [phone] Problems Active Problems Provider Date Moderate recurrent [...] F O2 % BldC Oximetry 97 % [place] Body Weight 115 lb Results Test Acquired Date Facility Test Result H/L Range Note Wet [place] Trichomonas 01/30/2020 [facility] Outpatient Geovanni ting (Registration) [address] [place] [address] 44562 [phone] Wet Prep WET PREP RESULT Normal 1 Chlamydia, GC & Trich Amp 01/30/2020 [facility] Outpatient Testing (Registration) [address] [place] [address] 61777 [phone] Chlamydia Dna Amplification NEGATIVE Normal Nega tive 2 GC Dna Amplification NEGATIVE Normal Negative 3 Trichomonas vaginalis (Amp) NOT DETECTED Normal Negative 4 Ua W/ Reflex To Culture 01/30/2020 [facility] Outpatient T esting (Registration) [address] [place] [address] 57600 [phone] Appearance, Urine RFX HAZY Normal Clear Color, Urine RFX YELLOW Normal Yellow PH,Urine RFX 6.0 units Normal 5.0-9.0 Specific [place] Ur Auto RFX 1.005 Normal 1.002-1.035 Protein, [...] /LPF Normal 0-1 CBC With Differential 01/30/2020 [facility] Outpatient Geovanni ting (Registration) [address] [place] [address] 35126 [phone] White Blood Count 9.0 10 Normal 4.0-10.0 [...] 36.0-66.0 Lymph % 28.3 % Normal 24.0-44.0 [place] % 6.4 % High 0.0-5.0 Eos % 1.7 % Normal 0.0-3.0 Baso % 0.2 % Normal 0.0-1.0 Immature Granulocyte % 0.2 % Normal 0-3.0 Nucleated Red Blood Cell % 0.0 % Normal 0-0 Neutrophils # 5.7 10 Normal 1.5-8.5 Lymph # 2.6 10 Normal 1.5-5.0 Heard # 0.6 10 Normal 0.0-0.8 Eos # 0.2 10 Normal 0.0-0.5 Baso # 0.0 10 Normal 0.0-0.2 Liver Profile 01/30/2020 [facility] Outpatient Testi ng (Registration) [address] [place] [address] 80911 [phone] Ast/Sgot 16 U/L Normal 7-37 Alt/SGPT 11 U/L Low 12-78 Alkaline Phosphatase 70 U/L Normal 45-117 Bilirubin,Total 0.3 mg/dL Normal 0.2-1.0 Bilirubin,Direct 0.1 mg/dL Normal 0.0-0.2 Total Protein 7.2 GM/DL Normal 6.4-8.2 Albumin 4.1 GM/DL Normal 3.2-5.2 Albumin/Globulin Ratio 1.3 Normal 1.2-2.2 Basic Metabolic Profile 01/30/2020 [facility] Outpatient T esting (Registration) [address] [place] [address] 85845 [phone] Glucose, Fasting 109 mg/dL High 70-100 Blood [...] mg/dL Normal 8.5-10.1 Laboratory test finding 01/30/2020 [facility] Outpatient T huan (Registration) [address] [place] [address] [phone] Lipase 98 U/L Normal 73-393 HCG Serum [...] Little GFR Left ESRD GFR <15 on FILTER PRESS TENDER HEAD Procedures Description No Information Available Medical Devices Description No Information Available Encounters Type Date Location Provider Dx Diagnosis Office Visit 02/09/2020 10:00a [facility] AQUILES Broussard N76.0 Acute vaginitis F33.1 Major depressive disorder, r ecurrent, moderate G47.00 Insomnia, unspecified F17.210 Nicotine dependence, cigaret geovanni, uncomplicated Assessments Date Code Description Provider 02/09/2020 N76.0 Acute vaginitis AQUILES Broussard 02/09/2020 F33.1 Major depressive disorder, recur rent, moderate AQUILES Broussard 02/09/2020 G47.00 Insomnia, unspecified AQUILES Apple 02/09/2020 F17.210 Nicotine dependence, cigarettes, uncomplicated AQUILES Broussard Plan of Treatment Future Appointment(s):* 03/11/2020 10:30 am - AQUILES Broussard at [facility] Functional Status Description No Information Available Mental Status Description No Information Available Referrals Description No Information Available
--- OUTSIDE RECORDS SUMMARY | 2020-04-06 13:01 | CCD | Continuity of Care Document ---
Author Author Dariela GARCIA Organization [place] [address] Phone [phone] Care Team Providers Care Direct Support Professional Caregiver Name Role Phone Martha Trejo D.O. AUTM [...] by mouth every day 90tabs F33.1 Martha Trjeo D.O. 03/11 Chantix Starting Month Jeffery 0.5mg [...] F O2 % BldC Oximetry 99 % [place] Body Weight 115 lb 02/09/2020 10:08am BP Systolic 104 mmHg BP Diastolic 62 mmHg Height 63.6 inches 5'3.60" Weight 109.12 lb BMI (Body Mass Index) 19.0 kg/m2 Heart Rate 91 /min Respiratory Rate 18 /min Body Temperature 98.6 F O2 % BldC Oximetry 97 % [place] Body Weight 115 lb Results Test Acquired Date Facility Test Result H/L Range Note Wet [place] Trichomonas 01/30/2020 [facility] Outpatient Geovanni ting (Registration) [address] [place] [address] [phone] Wet Prep WET PREP RESULT Normal 1 Chlamydia, GC & Trich Amp 01/30/2020 [facility] Outpatient Testing (Registration) [address] [place] [address] [phone] Chlamydia Dna Amplification NEGATIVE Normal Nega tive 2 GC Dna Amplification NEGATIVE Normal Negative 3 Trichomonas vaginalis (Amp) NOT DETECTED Normal Negative 4 Ua W/ Reflex To Culture 01/30/2020 [facility] Outpatient T esting (Registration) [address] [place] [address] [phone] Appearance, Urine RFX HAZY Normal Clear Color, Urine RFX YELLOW Normal Yellow PH,Urine RFX 6.0 units Normal 5.0-9.0 Specific [place] Ur Auto RFX 1.005 Normal 1.002-1.035 Protein, [...] /LPF Normal 0-1 CBC With Differential 01/30/2020 [facility] Outpatient Geovanni maya (Registration) [address] [place] [phone] White Blood Count 9.0 10 Normal 4.0-10.0 [...] 36.0-66.0 Lymph % 28.3 % Normal 24.0-44.0 Milam % 6.4 % High 0.0-5.0 Eos % 1.7 % Normal 0.0-3.0 Baso % 0.2 % Normal 0.0-1.0 Immature Granulocyte % 0.2 % Normal 0-3.0 Nucleated Red Blood Cell % 0.0 % Normal 0-0 Neutrophils # 5.7 10 Normal 1.5-8.5 Lymph # 2.6 10 Normal 1.5-5.0 Milam # 0.6 10 Normal 0.0-0.8 Eos # 0.2 10 Normal 0.0-0.5 Baso # 0.0 10 Normal 0.0-0.2 Liver Profile 01/30/2020 [facility] Outpatient Testi ng (Registration) [address] [place] [phone] Ast/Sgot 16 U/L Normal 7-37 Alt/SGPT 11 U/L Low 12-78 Alkaline Phosphatase 70 U/L Normal 45-117 Bilirubin,Total 0.3 mg/dL Normal 0.2-1.0 Bilirubin,Direct 0.1 mg/dL Normal 0.0-0.2 Total Protein 7.2 GM/DL Normal 6.4-8.2 Albumin 4.1 GM/DL Normal 3.2-5.2 Albumin/Globulin Ratio 1.3 Normal 1.2-2.2 Basic Metabolic Profile 01/30/2020 [facility] Outpatient T esting (Registration) [address] [place] [address]334 [phone] Glucose, Fasting 109 mg/dL High 70-100 Blood [...] mg/dL Normal 8.5-10.1 Laboratory test finding 01/30/2020 [facility] Outpatient T esting (Registration) [address] [place] [address]7705 [phone] Lipase 98 U/L Normal 73-393 HCG Serum [...] Little GFR Left ESRD GFR <15 on [employer] Procedures Description No Information Available Medical Devices Description No Information Available Encounters Type Date Location Provider Dx Diagnosis Office Visit 02/09/2020 10:00a [facility] AQUILES Broussard N76.0 Acute vaginitis F33.1 Major [...] 06/09/2020 11:20 am - AQUILES Broussard at [facility] * 03/17/2020 1:10 pm - Martha Trejo D.O. at [facility] 03/11/2020 - AQUILES Broussard* F33.1 Major depressive disorder, recurrent, moderate* New Medication:* Sertraline HCL 100 mg - 1 by mouth every day * Comments:* Improved symptoms starting Zoloft but will increase your dosage from 50 mg to 100 mg once a day. * G47.00 Insomnia, unspecified* Comments:* Sleeping improved with Trazodone. * F17.210 Nicotine dependence, cigarettes, uncomplicated* New Medication:* Chantix Starting Month Jeffery 0.5 mg X 11 & 1 mg X 42 - take as directed. * Comments:* Start Chantix to help you quit smoking. * N76.0 Acute vaginitis* New Labs:* Genital Culture, Scheduled: 03/11/20 * Comments:* Continued vaginal discharge and irregular bleeding since finishing Flagyl antibiotic. Please follow up with Dr. Verma for a pelvic exam and determine cause. * Follow up:* pelvic exam with dr for discharge (NOT PAP) and 3 months with me * F43.0 Acute stress reaction* New Medication:* Alprazolam 0.5 mg - take one tablet by mouth every 12 hours as needed * Comments:* Given recent traumatic events with brother we will prescribe Xanax as needed to help with current stress. Functional Status Description No Information Available Mental Status Description No Information Available Referrals Description No Information Available
[2020-04-06 13:41] LABS: BASO # 0.1 10^3/uL (0.0-0.2); BASO % 0.6 % (0.0-1.0); EOS # 0.1 10^3/uL (0.0-0.5); EOS % 1.2 % (0.0-3.0); HEMATOCRIT 43.8 % (36.0-47.0); HEMOGLOBIN 14.1 g/dl (12.0-15.5); LYMPH # 1.8 10^3/uL (1.5-5.0); LYMPH % 20.8 % (24.0-44.0); MEAN CORPUSCULAR HEMOGLOBIN 30.4 pg (27.0-33.0); MEAN CORPUSCULAR HGB CONC 32.2 g/dl (32.0-36.5); MEAN CORPUSCULAR VOLUME 94.4 fl (80.0-96.0); MONO # 0.7 10^3/uL (0.0-0.8); MONO % 7.9 % (0.0-5.0); NEUTROPHILS % 69.3 % (36.0-66.0); PLATELET COUNT, AUTOMATED 251 10^3/uL (150-450); RED BLOOD COUNT 4.64 10^6/uL (4.00-5.40); WHITE BLOOD COUNT 8.6 10^3/uL (4.0-10.0)
[2020-04-06 14:00] LABS: AMPHETAMINES LEVEL URINE NEGATIVE (NEGATIVE); BARBITURATES URINE NEGATIVE (NEGATIVE); BENZODIAZEPINES URINE NEGATIVE (NEGATIVE); CANNABINOIDS URINE POSITIVE (NEGATIVE); COCAINE METABOLITE URINE NEGATIVE (NEGATIVE); METHADONE URINE NEGATIVE (NEGATIVE); OPIATES URINE NEGATIVE (NEGATIVE); PHENCYCLIDINE URINE NEGATIVE (NEGATIVE)
[2020-04-06 14:07] LABS: HCG, SERUM QUALITATIVE NEGATIVE (NEGATIVE)
[2020-04-06 14:09] LABS: ACETAMINOPHEN LEVEL < 2.0 UG/ML (10.0-30.0); BLOOD UREA NITROGEN 8 MG/DL (7-18); CALCIUM LEVEL 8.9 MG/DL (8.5-10.1); CARBON DIOXIDE LEVEL 31 MEQ/L (21-32); CHLORIDE LEVEL 106 MEQ/L (98-107); CREATININE FOR GFR 0.65 MG/DL (0.55-1.30); ETHYL ALCOHOL (ETHANOL) < 0.003 % (0.000-0.010); GLOMERULAR FILTRATION RATE > 60.0 (>60); GLUCOSE, FASTING 91 MG/DL (70-100); POTASSIUM SERUM 4.3 MEQ/L (3.5-5.1); SALICYLATE LEVEL < 1.7 MG/DL (5.0-30.0); SODIUM LEVEL 143 MEQ/L (136-145)
[2020-04-06] MEDS ORDERED: BOOSTRIX/ADACEL VACCINE (DIPHTH/PERTUSS/ACELL/TETANUS) 0.5ML SYR IM ONE (14:30)
--- OUTSIDE RECORDS SUMMARY | 2020-04-06 16:23 | CCD ---
Author Author [facility] Organization [facility] Address Unknown Phone Unavailable Care Team Providers Care Lifestyle Coordinator Name Role Phone Cris Real Unavailable Unavailable [...] is protected by Article 27-F of the [facility] Public Health law. If you continue you may have access to information: Regarding HIV / AIDS; Provided by facilities licensed or operated by the [facility] Office of Mental Health; or Provided by the [facility] Office for People With Developmental Disabilities. If such information is present, then the following [facility] mandated warning applies: This information has been [...] law may result in a fine or assisted sentence or both. A general authorization for the release of medical or other information is NOT sufficient authorization for further disc losure. Encounters Encounter Providers Location Date Indications Data Source(s ) Outpatient Attender: JENNIFER PETTIT DO [facility] 03/17/2020 12:10:00 PM EST [facility] (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[facility]) Outpatient Attender: HALIMA DUENAS 04/17/2019 08:01:02 PM EST [facility] Medications Medication Brand Name Start Date Product [...] 03/17/2020 1 2:00:00 AM EST active MED[facility] ([facility]) Sulfamethoxazole 800 MG / Trimethoprim 160 MG Oral Tablet [B actrim] Bactrim DS 03/17/2020 12:00:00 AM EST ORAL active MEDENT ([facility]) 0.5 mg (11)- 1 mg (42) 03/11/2020 12:00:00 AM EST tablets,do se pack 53 DIRECTED DIRECTED SOLD: 03/11/2020 [facility] Chantix Starting Month Jeffery Chantix Starting Month Jeffery 2020 12:00:00 AM EST active MEDENT ([facility]) 100 mg 03/11/2020 12:00:00 AM EST tablet 90 TAKE ONE TABLET BY MOUTH EVERY DAY TAKE ONE TABLET BY MOUTH EVERY DAY SOLD: 03/11/2020 [facility] Alprazolam 0.5 MG Oral Tablet Alprazolam 03/11/2020 12:00:00 AM EST ORAL active MEDENT ([facility]) Alprazolam 0.5 MG Oral Tablet ALPRAZOLAM 03/11/2020 12:00:00 AM EST ta blet 14 TAKE ONE TABLET BY MOUTH EVERY 12 HOURS NEEDED MAXIMUM DAILY DOSE = 2 TAKE ONE TABLET BY MOUTH EVERY 12 HOURS NEEDED MAXIMUM DAILY DOSE = 2 SOLD: 03/11/2020 [facility] Sertraline 100 MG Oral Tablet Sertraline HCL 03/11/2020 12:00:[address] ORAL active MED[facility] ([facility]) Sertraline 50 MG Oral Tablet Sertraline HCL 02/09/2020 12:00:00 AM EST ORAL completed MED[facility] ([facility]) Trazodone Hydrochloride 50 MG Oral Tablet Trazodone HCL 02/09/2020 12:00:00 AM EST ORAL active MED[facility] ([facility]) Metronidazole 500 MG Oral Tablet Metronidazole 02/09/2020 12:00:00 AM EST ORAL completed MED[facility] ([facility]) 50 mg 02/09/2020 12:00:00 AM EST tablet 30 TAKE ONE TABLET BY MOUTH EVERY DAY TAKE ONE TABLET BY MOUTH EVERY DAY SOLD: 02/09/2020 [facility] 50 mg 02/09/2020 12:00:00 AM EST tablet 90 TAKE ONE TABLET BY MOUTH AT BEDTIME TAKE ONE TABLET BY MOUTH AT BEDTIME SOLD: 02/09/2020 [facility] Metronidazole 500 MG Oral Tablet METRONIDAZOLE 02/09/2020 12:0 0:00 AM EST tablet 20 TAKE ONE TABLET BY MOUTH EVERY 1 2 HOURS FOR 10 DAYS TAKE ONE TABLET BY MOUTH EVERY 12 HOURS FOR 10 DAYS SOLD: 02/09/2020 [facility] Insurance Providers Payer name Policy type / Coverage type Policy ID Covered alliance party ID Covered alliance party's relationship to james Policy James Plan Information [facility] COMMUNITY PLAN [facility] [id number] SP [id number] EMEDNY [id number] SP [id number] SELF PAY ONLY [id number] SP [id number] Medicaid P [id number] S [id number] [facility] [id number] [facility] [id number] [facility] Other 0 Self [address] [facility] [id number] SP [id number] Medicaid P [id number] S [id number] [facility] [id number] SP [id number] MEDICAID [id number] [facility] PHCP [id number] SP [id number] SELF PAY ONLY [id number] SELF PAY ONLY [id number] SP [id number] UN COMMUNITY PLAN [facility] [id number] SP [id number] MEDICAID M [id number] Self [id number] [facility] UNAVAILABLE 18 UNAVAILABLE Medicaid Dental P [id number] S [id number] MEDICAID P [id number] S [id number] MEDICAID UNAVAILABLE SP UNAVAILA BLE D [facility] Home P 0 S 0 Problems, Conditions, and Diagnoses Code Display Name Description Problem Type Effective Dates Data Source(s) [id number] Insomnia Insomnia Problem 03/11/2020 12:00:00 AM ES T MED[facility] ([facility]) [id number] Moderate recurrent major depression Mode rate recurrent major depression Problem 02/09/2020 12:00:00 AM EST [facility] ([facility]) Results ID Date Data Source [id number] 03/11/2020 11:05:00 AM EST [facility] ([facility]) Name Value Range Interpretation Code Description Data Sherrell rce(s) Supporting Document(s) Bacteria identified in Genital specimen by Aerobe cult ure Laboratory test result Normal (applies to non-numeric results) [facility] ([facility]) <content>FULL REPORT IN LAB NOTES (eCW a [...] FOR ESBL</content>
<content></content> ID Date Data Source [id number] 01/30/2020 09:45:00 PM EST [facility]) Name Value Range Interpretation Code Description Data Sherrell rce(s) Supporting Document(s) Chlamydia Dna Amplification Laboratory test result Normal (applies to non- numeric results) [facility] ([facility]) A negative test result does not exclude the possibility of infection because test results may be affected by improper specimen collection, technical error, specimen mix-up, concurrent antibiotic therapy, or the number of organisms in the specimen which may be below the sensitivity of the test. Laboratory test finding (navigational concept) Laboratory test r esult Normal (applies to non-numeric results) [facility] ([facility]) A negative test result does not exclude the possibility of infection because test results may be affected by improper specimen collection, technical error, sample mix-up, or because the number of organisms in the sample is below the limit of detection of the test. GC Dna Amplification Laboratory test result Norm al (applies to non-numeric results) [facility] ([facility]) A negative test result does not exclude the possibility of infection because test results may be affected by improper specimen collection, technical error, specimen mix-up, concurrent antibiotic therapy, or the number of organisms in the specimen which may be below the sensitivity of the test. ID Date Data Source [id number] 01/30/2020 09:45:00 PM EST [facility]) Name Value Range Interpretation Code Description Data Sherrell rce(s) Supporting Document(s) Wet Prep Laboratory test result Normal (applies to non-n umeric results) [facility] ([facility]) MANY EPITHELIAL CELLS PRESENT MANY RBC MODERATE WBC MANY SHORT RODS PRESENT FEW CLUE CELLS PRESENT ID Date Data Source [id number] 01/30/2020 09:45:00 PM EST [facility] Name Value Range Interpretation Code Description Data Sherrell rce(s) Supporting Document(s) SARS coronavirus 2 RNA [Presence] in Res piratory specimen by CATHLEEN with probe detection [facility] This lab was ordered by [facility] a nd reported by [facility]. ID Date Data Source [id number] 01/30/2020 09:10:00 PM EST [facility] ([facility]) Name Value Range Interpretation Code Description Data Sherrell rce(s) Supporting Document(s) Choriogonadotropin.beta subunit ( test) [Pres ence] in Serum or Plasma Laboratory test result Normal (applies to non-numeric results) [facility] ([facility]) Lipase [Enzymatic activity/volume] in Serum or Plasma 98 U/L [id number] Normal (applies to non-numeric results) [facility] ([facility]) ID Date Data Source [id number] 01/30/2020 09:10:00 PM EST [facility] ([facility]) Name Value Range Interpretation Code Description Data Sherrell rce(s) Supporting Document(s) Blood Urea Nitrogen 8 mg/dL 7-18 Normal (applies to non-nume farzaneh results) [facility] ([facility]) Glucose, Fasting 109 mg/dL 70-100 Above high normal M [facility] ([facility]) Glomerular Filtration Rate Laboratory test result Normal (applies to non- numeric results) [facility]) <content>Units are mL/min/1.73 m2</content>
<content></content>
<content>Chronic Kidney Disease Staging per NKF:</content>
<content></content>
<content>Stage I & II GFR >=60 Normal to Mildly Decreased</content>
<content>Stage III GFR 30-59 Moderately Decreased</content>
<content>Stage IV GFR 15-29 Severely Decreased</content>
<content>Stage V GFR <15 Very Little GFR Left</content>
<content>ESRD GFR <15 on MANAGER MORTGAGE</content>
<content></content> Creatinine For GFR 0.73 mg/dL 0.55-1.30 Normal (applies to non -numeric results) [facility] ([facility]) Sodium Level 142 meq/L 136-145 Normal (applies to non-numeric res ults) [facility] ([facility]) Carbon Dioxide Level 30 meq/L 21-32 Normal (applies to non-num gaviota results) [facility] ([facility]) Potassium Serum 3.7 meq/L 3.5-5.1 Normal (applies to non-numeric results) [facility] ([facility]) Chloride Level 108 meq/L 98-107 Above high normal [facility] ([facility]) Calcium Level 8.6 mg/dL 8.5-10.1 Normal (applies to non-numeric re sults) [facility] ([facility]) Anion Gap 4 meq/L 8-16 Below low normal [facility] ( [facility]) ID Date Data Source [id number] 01/30/2020 09:10:00 PM EST [facility] ([facility]) Name Value Range Interpretation Code Description Data Sherrell rce(s) Supporting Document(s) Alkaline Phosphatase 70 U/L 45-117 Normal (applies to non-num gaviota results) [facility] ([facility]) Alt/SGPT 11 U/L 12-78 Below low normal [facility] ( [facility]) Ast/Sgot 16 U/L 7-37 Normal (applies to non-numeric resul ts) [facility] ([facility]) Bilirubin,Direct 0.1 mg/dL 0.0-0.2 Normal (applies to non-numeric results) [facility] ([facility]) Total Protein 7.2 GM/DL 6.4-8.2 Normal (applies to non-numeric re sults) [facility] ([facility]) Bilirubin,Total 0.3 mg/dL 0.2-1.0 Normal (applies to non-numeric results) [facility] ([facility]) Albumin/Globulin Ratio 1.3 1.2-2.2 Normal (applies to non-n umeric results) [facility] ([facility]) Albumin 4.1 GM/DL 3.2-5.2 Normal (applies to non-numeric resul ts) [facility] ([facility]) ID Date Data Source [id number] 01/30/2020 09:10:00 PM EST [facility] ([facility]) Name Value Range Interpretation Code Description Data Sherrell rce(s) Supporting Document(s) White Blood Count 9.0 10 4.0-10.0 Normal (applies to non-numeri c results) [facility] ([facility]) Hematocrit 44.6 % 36.0-47.0 Normal (applies to non-numeric resul ts) [facility] ([facility]) Red Blood Count 4.73 10 4.00-5.40 Normal (applies to non-numeric results) [facility] ([facility]) Hemoglobin 14.2 g/dL 12.0-15.5 Normal (applies to non-numeric resul ts) [facility] ([facility]) Mean Corpuscular Hemoglobin 30.0 pg 27.0-33.0 Norm al (applies to non-numeric results) [facility] ([facility]) Mean Corpuscular Volume 94.3 fl 80.0-96.0 Normal ( applies to non-numeric results) [facility]) Mean Corpuscular HGB Conc 31.8 g/dL 32.0-36.5 Below low normal [facility] ([facility]) Neutrophils % 63.2 % 36.0-66.0 Normal (applies to non-numeric re sults) [facility] ([facility]) Red Cell Distribution Width 12.7 % 11.5-14.5 Norm al (applies to non-numeric results) [facility] ([facility]) Platelet Count, Automated 227 10 150-450 Normal (applies to non-numeric results) [facility] ([facility]) [place] % 6.4 % 0.0-5.0 Above high normal [facility] ([facility]) Lymph % 28.3 % 24.0-44.0 Normal (applies to non-numeric resul ts) [facility] ([facility]) Eos % 1.7 % 0.0-3.0 Normal (applies to non-numeric resul ts) [facility] ([facility]) Baso % 0.2 % 0.0-1.0 Normal (applies to non-numeric resul ts) [facility] ([facility]) Immature Granulocyte % 0.2 % 0-3.0 Normal (applies to non-n umeric results) [facility] ([facility]) Nucleated Red Blood Cell % 0.0 % 0-0 Normal (applies to n on-numeric results) [facility] ([facility]) Neutrophils # 5.7 10 1.5-8.5 Normal (applies to non-numeric re sults) [facility] ([facility]) Lymph # 2.6 10 1.5-5.0 Normal (applies to non-numeric resul ts) [facility] ([facility]) [place] # 0.6 10 0.0-0.8 Normal (applies to non-numeric resul ts) [facility] ([facility]) Eos # 0.2 10 0.0-0.5 Normal (applies to non-numeric resul ts) [facility] ([facility]) Baso # 0.0 10 0.0-0.2 Normal (applies to non-numeric resul ts) [facility] ([facility]) ID Date Data Source [id number] 01/30/2020 09:10:00 PM EST [facility] ([facility]) Name Value Range Interpretation Code Description Data Sherrell rce(s) Supporting Document(s) Appearance, Urine RFX Laboratory test result Nor mal (applies to non-numeric results) [facility] ([facility]) Color, Urine RFX Laboratory test result Normal ( applies to non-numeric results) [facility] ([facility]) PH,Urine RFX 6.0 units 5.0-9.0 Normal (applies to non-numeric res ults) [facility] ([facility]) Protein, Urine Auto RFX Laboratory test result N ormal (applies to non-numeric results) [facility] ([facility]) Specific [place] Ur Auto RFX 1.005 1.002-1.035 Nor mal (applies to non-numeric results) [facility] ([facility]) Urobilinogen, Urine Auto RFX 0.2 mg/dL 0.0-2.0 Nor mal (applies to non-numeric results) [facility] ([facility]) Glucose, Urine (Ua) Auto RFX Laboratory test result Normal (applies to non- numeric results) [facility] ([facility]) Ketone, Urine Auto RFX Laboratory test result No rmal (applies to non-numeric results) [facility] ([facility]) Nitrite, Urine Auto RFX Laboratory test result N ormal (applies to non-numeric results) [facility] ([facility]) Leukocyte Esterase Ur Auto RFX Laboratory test result Normal (applies to non- numeric results) [facility] ([facility]) Bilirubin, Urine Auto RFX Laboratory test result Normal (applies to non- numeric results) [facility] ([facility]) Blood, Urine Blood RFX Laboratory test result No rmal (applies to non-numeric results) [facility] ([facility]) WBC, Urine Auto RFX 1 /HPF 0-3 Normal (applies to non-nume farzaneh results) [facility] ([facility]) RBC, Urine Auto RFX 1 /HPF 0-3 Normal (applies to non-nume farzaneh results) [facility] ([facility]) Squam Epithelial Cell Ur Aurfx 8 /HPF 0-6 N ormal (applies to non-numeric results) [facility] ([facility]) Bacteria, Urine Auto RFX Laboratory test result Normal (applies to non-numeric results) [facility] ([facility]) Hyaline Cast, Urine Auto RFX 0 /LPF 0-1 Normal (appl ies to non-numeric results) [facility] ([facility]) ID Date Data Source [id number] 12/03/2019 01:35:00 PM EDT [facility] ([facility] [...] process. Scoliosis. Professional interpretation performed at the [facility] Office [facility] . 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 Procedure Vital Signs ID Date Data Source [id number] Name Value Range Interpretation Code Description Data Source(s) [place] body weight 115 [lb_av] 115 [lb_av] MED[facility] T ([facility]) Oxygen saturation in Arterial blood by Pulse oximetry 98 % 98 % [facility] ([facility]) Body temperature 97.8 [degF] 97.8 [degF] [facility] ([facility]) Respiratory rate 22 /min 22 /min [facility] ( [facility]) Heart rate 96 /min 96 /min [facility] ([facility]) Body mass index (BMI) [Ratio] 18.2 kg/m2 18.2 k g/m2 [facility]) Body weight 104.50 [lb_av] 104.50 [lb_av] [facility] T ([facility]) Body height 63.6 [in_i] 63.6 [in_i] [facility] ([facility]) 5'3.60" Diastolic blood pressure 76 mm[Hg] 76 mm[Hg] [facility]) Systolic blood pressure 110 mm[Hg] 110 mm[Hg] M [facility] ([facility]) [place] body weight 115 [lb_av] 115 [lb_av] MED[facility] T ([facility]) Oxygen saturation in Arterial blood by Pulse oximetry 99 % 99 % [facility] ([facility]) Body temperature 97.5 [degF] 97.5 [degF] [facility] ([facility]) Respiratory rate 18 /min 18 /min [facility] ( [facility]) Heart rate 78 /min 78 /min [facility] ([facility]) Body mass index (BMI) [Ratio] 19.0 kg/m2 19.0 k g/m2 [facility] ([facility]) Body weight 109.12 [lb_av] 109.12 [lb_av] [facility] T ([facility]) Body height 63.6 [in_i] 63.6 [in_i] [facility] ([facility]) 5'3.60" Diastolic blood pressure 84 mm[Hg] 84 mm[Hg] [facility] ([facility]) Systolic blood pressure 116 mm[Hg] 116 mm[Hg] M NAOMIE ([facility]) [place] body weight 115 [lb_av] 115 [lb_av] [facility] T ([facility]) Oxygen saturation in Arterial blood by Pulse oximetry 97 % 97 % [facility] ([facility]) Body temperature 98.6 [degF] 98.6 [degF] [facility] ([facility]) Respiratory rate 18 /min 18 /min [facility] ( [facility]) Heart rate 91 /min 91 /min [facility] ([facility]) Body mass index (BMI) [Ratio] 19.0 kg/m2 19.0 k g/m2 [facility] ([facility]) Body weight 109.12 [lb_av] 109.12 [lb_av] MED[facility] T ([facility]) Body height 63.6 [in_i] 63.6 [in_i] [facility] ([facility]) 5'3.60" Diastolic blood pressure 62 mm[Hg] 62 mm[Hg] [facility] ([facility]) Systolic blood pressure 104 mm[Hg] 104 mm[Hg] M NAOMIE ([facility])
[2020-04-06] MEDS ORDERED: TRAZ1TAB11 PO (16:24)
[2020-04-06] MEDS ORDERED: CHAN1PAK13 PO (16:24)
[2020-04-06] MEDS ORDERED: PROAAER10 INH (16:24)
[2020-04-06] MEDS ORDERED: ZOLO100T PO (16:24)
[2020-04-06] MEDS ORDERED: MAALOX 30 ML SUSP *UDC PO PRN (17:00)
[2020-04-06] MEDS ORDERED: MOM 30ML SUSPENSION UDC PO PRN (17:00)
--- OUTSIDE RECORDS SUMMARY | 2020-04-06 17:14 | CCD ---
Author Author [facility] Organization [facility] Address Unknown Phone Unavailable Care Team Providers Care Nurse Plastics Name Role Phone Cris Real Unavailable Unavailable [...] is protected by Article 27-F of the [facility] Public Health law. If you continue you may have access to information: Regarding HIV / AIDS; Provided by facilities licensed or operated by the [facility] Office of Mental Health; or Provided by the [facility] Office for People With Developmental Disabilities. If such information is present, then the following [facility] mandated warning applies: This information has [...] law may result in a fine or intermediate sentence or both. A general authorization for the release of medical or other information is NOT sufficient authorization for further disc losure. Encounters Encounter Providers Location Date Indications Data Source(s ) Outpatient Attender: JENNIFER PETTIT DO [facility] 03/17/2020 12:10:00 PM EST [facility] ([facility]) Outpatient Attender: Luke KWAN [facility] 03/11/2020 09:30:00 AM EST MED[facility] ([facility]) Outpatient Attender: Luke KWAN [facility] 02/09/2020 09:00:00 AM EST [facility] ([facility]) Outpatient 12/03/2019 12:45:24 PM EDT [facility] ([facility]) Outpatient Attender: HALIMA DUENAS 04/17/2019 08:01:02 PM EST [facility] Medications Medication Brand Name Start [...] 03/17/2020 1 2:00:00 AM EST active [facility] ([facility]) Sulfamethoxazole 800 MG / Trimethoprim 160 MG Oral Tablet [B actrim] Bactrim DS 03/17/2020 12:00:00 AM EST ORAL active MED[facility] ([facility]) 0.5 mg (11)- 1 mg (42) 03/11/2020 12:00:00 AM EST tablets,do se pack 53 DIRECTED DIRECTED SOLD: 03/11/2020 [facility] Chantix Starting Month Jeffery Chantix Starting Month Jeffery 2020 12:00:00 AM EST active [facility] ([facility]) 100 mg 03/11/2020 12:00:00 AM EST tablet 90 TAKE ONE TABLET BY MOUTH EVERY DAY TAKE ONE TABLET BY MOUTH EVERY DAY SOLD: 03/11/2020 [facility] Alprazolam 0.5 MG Oral Tablet Alprazolam 03/11/2020 12:00:00 AM EST ORAL active MEDENT ([facility]) Alprazolam 0.5 MG Oral Tablet ALPRAZOLAM 03/11/2020 12:00:00 AM EST ta blet 14 TAKE ONE TABLET BY MOUTH EVERY 12 HOURS NEEDED MAXIMUM DAILY DOSE = 2 TAKE ONE TABLET BY MOUTH EVERY 12 HOURS NEEDED MAXIMUM DAILY DOSE = 2 SOLD: 03/11/2020 [facility] Sertraline 100 MG Oral Tablet Sertraline HCL 03/11/2020 12:00:[address] ORAL active [facility] ([facility]) Sertraline 50 MG Oral Tablet Sertraline HCL 02/09/2020 12:00:00 AM EST ORAL completed [facility] ([facility]) Trazodone Hydrochloride 50 MG Oral Tablet Trazodone HCL 02/09/2020 12:00:00 AM EST ORAL active [facility] ([facility]) Metronidazole 500 MG Oral Tablet Metronidazole 02/09/2020 12:00:00 AM EST ORAL completed [facility] ([facility]) 50 mg 02/09/2020 12:00:00 AM EST tablet [...] type / Coverage type Policy ID Covered libertarian ID Covered libertarian's relationship to james Policy James Plan Information FORMERLY [facility] COMMUNITY PLAN [facility] [id number] SP [id number] [place] [id number] SP [id number] SELF PAY ONLY [id number] SP [id number] Medicaid P [id number] S [id number] [facility] O [id number] S [id number] [facility] Self 0 [facility] [id number] SP [id number] Medicaid P [id number] S [id number] [facility] [id number] SP [id number] MEDICAID [id number] SP [id number] [facility] PHCP [id number] SP [id number] SELF PAY ONLY [id number] SELF PAY ONLY [id number] SP [id number] UN COMMUNITY PLAN [facility] [id number] SP [id number] MEDICAID M [id number] Self [id number] [facility] UNAVAILABLE 18 UNAVAILABLE Medicaid Dental P [id number] S [id number] MEDICAID P [id number] S [id number] MEDICAID UNAVAILABLE SP UNAVAILA BLE D [facility] Home P 0 S 0 Problems, Conditions, and Diagnoses Code Display Name Description Problem Type Effective Dates Data Source(s) 080925537 Insomnia Insomnia Problem 03/11/2020 12:00:00 AM ES T MED[facility] ([facility]) [id number] Moderate recurrent major depression Mode rate recurrent major depression Problem 02/09/2020 12:00:00 AM EST [facility] ([facility]) Results ID Date Data Source [id number] 03/11/2020 11:05:00 AM EST [facility] ([facility]) Name Value Range Interpretation Code Description Data Sherrell rce(s) Supporting Document(s) Bacteria identified in Genital specimen by Aerobe cult ure Laboratory test result Normal (applies to non-numeric results) [facility] ([facility]) <content>FULL REPORT IN LAB NOTES (eCW a [...] FOR ESBL</content>
<content></content> ID Date Data Source [id number] 01/30/2020 09:45:00 PM EST [facility]) Name Value Range Interpretation Code Description Data Sherrell rce(s) Supporting Document(s) Chlamydia Dna Amplification Laboratory test result Normal (applies to non- numeric results) [facility] ([facility]) A negative test result does not exclude the possibility of infection because test results may be affected by improper specimen collection, technical error, specimen mix-up, concurrent antibiotic therapy, or the number of organisms in the specimen which may be below the sensitivity of the test. Laboratory test finding (navigational concept) Laboratory test r esult Normal (applies to non-numeric results) [facility] ([facility]) A negative test result does not exclude the possibility of infection because test results may be affected by improper specimen collection, technical error, sample mix-up, or because the number of organisms in the sample is below the limit of detection of the test. GC Dna Amplification Laboratory test result Norm al (applies to non-numeric results) [facility] ([facility]) A negative test result does not exclude the possibility of infection because test results may be affected by improper specimen collection, technical error, specimen mix-up, concurrent antibiotic therapy, or the number of organisms in the specimen which may be below the sensitivity of the test. ID Date Data Source [id number] 01/30/2020 09:45:00 PM EST [facility]) Name Value Range Interpretation Code Description Data Sherrell rce(s) Supporting Document(s) Wet Prep Laboratory test result Normal (applies to non-n umeric results) [facility] ([facility]) MANY EPITHELIAL CELLS PRESENT MANY RBC MODERATE WBC MANY SHORT RODS PRESENT FEW CLUE CELLS PRESENT ID Date Data Source [id number] 01/30/2020 09:45:00 PM EST [facility] Name Value Range Interpretation Code Description Data Sherrell rce(s) Supporting Document(s) SARS coronavirus 2 RNA [Presence] in Res piratory specimen by CATHLEEN with probe detection [facility] This lab was ordered by [facility] a nd reported by [facility]. ID Date Data Source [id number] 01/30/2020 09:10:00 PM EST [facility] ([facility]) Name Value Range Interpretation Code Description Data Sherrell rce(s) Supporting Document(s) Choriogonadotropin.beta subunit ( test) [Pres ence] in Serum or Plasma Laboratory test result Normal (applies to non-numeric results) [facility] ([facility]) Lipase [Enzymatic activity/volume] in Serum or Plasma 98 U/L 73-393 Normal (applies to non-numeric results) [facility] ([facility]) ID Date Data Source [id number] 01/30/2020 09:10:00 PM EST [facility] ([facility]) Name Value Range Interpretation Code Description Data Sherrell rce(s) Supporting Document(s) Blood Urea Nitrogen 8 mg/dL 7-18 Normal (applies to non-nume farazneh results) [facility] ([facility]) Glucose, Fasting 109 mg/dL 70-100 Above high normal M [facility] ([facility]) Glomerular Filtration Rate Laboratory test result Normal (applies to non- numeric results) [facility] ([facility]) <content>Units are mL/min/1.73 m2</content>
<content></content>
<content>Chronic Kidney Disease Staging per NKF:</content>
<content></content>
<content>Stage I & II GFR >=60 Normal to Mildly Decreased</content>
<content>Stage III GFR 30-59 Moderately Decreased</content>
<content>Stage IV GFR 15-29 Severely Decreased</content>
<content>Stage V GFR <15 Very Little GFR Left</content>
<content>ESRD GFR <15 on SPORTS ATTORNEY</content>
<content></content> Creatinine For GFR 0.73 mg/dL 0.55-1.30 Normal (applies to non -numeric results) [facility] ([facility]) Sodium Level 142 meq/L 136-145 Normal (applies to non-numeric res ults) [facility] ([facility]) Carbon Dioxide Level 30 meq/L 21-32 Normal (applies to non-num gaviota results) [facility] ([facility]) Potassium Serum 3.7 meq/L 3.5-5.1 Normal (applies to non-numeric results) [facility] ([facility]) Chloride Level 108 meq/L 98-107 Above high normal [facility] ([facility]) Calcium Level 8.6 mg/dL 8.5-10.1 Normal (applies to non-numeric re sults) [facility] ([facility]) Anion Gap 4 meq/L 8-16 Below low normal [facility] ( [facility]) ID Date Data Source [id number] 01/30/2020 09:10:00 PM EST [facility] ([facility]) Name Value Range Interpretation Code Description Data Sherrell rce(s) Supporting Document(s) Alkaline Phosphatase 70 U/L 45-117 Normal (applies to non-num gaviota results) [facility] ([facility]) Alt/SGPT 11 U/L 12-78 Below low normal [facility] ( [facility]) Ast/Sgot 16 U/L 7-37 Normal (applies to non-numeric resul ts) [facility] ([facility]) Bilirubin,Direct 0.1 mg/dL 0.0-0.2 Normal (applies to non-numeric results) [facility] ([facility]) Total Protein 7.2 GM/DL 6.4-8.2 Normal (applies to non-numeric re sults) [facility] ([facility]) Bilirubin,Total 0.3 mg/dL 0.2-1.0 Normal (applies to non-numeric results) [facility] ([facility]) Albumin/Globulin Ratio 1.3 1.2-2.2 Normal (applies to non-n umeric results) [facility] ([facility]) Albumin 4.1 GM/DL 3.2-5.2 Normal (applies to non-numeric resul ts) [facility] ([facility]) ID Date Data Source [id number] 01/30/2020 09:10:00 PM EST [facility] ([facility]) Name Value Range Interpretation Code Description Data Sherrell rce(s) Supporting Document(s) White Blood Count 9.0 10 4.0-10.0 Normal (applies to non-numeri c results) [facility] ([facility]) Hematocrit 44.6 % 36.0-47.0 Normal (applies to non-numeric resul ts) [facility] ([facility]) Red Blood Count 4.73 10 4.00-5.40 Normal (applies to non-numeric results) [facility] ([facility]) Hemoglobin 14.2 g/dL 12.0-15.5 Normal (applies to non-numeric resul ts) [facility] ([facility]) Mean Corpuscular Hemoglobin 30.0 pg 27.0-33.0 Norm al (applies to non-numeric results) [facility] ([facility]) Mean Corpuscular Volume 94.3 fl 80.0-96.0 Normal ( applies to non-numeric results) [facility] ([facility]) Mean Corpuscular HGB Conc 31.8 g/dL 32.0-36.5 Below low normal [facility] ([facility]) Neutrophils % 63.2 % 36.0-66.0 Normal (applies to non-numeric re sults) [facility] ([facility]) Red Cell Distribution Width 12.7 % 11.5-14.5 Norm al (applies to non-numeric results) [facility] ([facility]) Platelet Count, Automated 227 10 150-450 Normal (applies to non-numeric results) [facility] ([facility]) Parker % 6.4 % 0.0-5.0 Above high normal [facility] ([facility]) Lymph % 28.3 % 24.0-44.0 Normal (applies to non-numeric resul ts) [facility] ([facility]) Eos % 1.7 % 0.0-3.0 Normal (applies to non-numeric resul ts) [facility] ([facility]) Baso % 0.2 % 0.0-1.0 Normal (applies to non-numeric resul ts) [facility] ([facility]) Immature Granulocyte % 0.2 % 0-3.0 Normal (applies to non-n umeric results) [facility] ([facility]) Nucleated Red Blood Cell % 0.0 % 0-0 Normal (applies to n on-numeric results) [facility] ([facility]) Neutrophils # 5.7 10 1.5-8.5 Normal (applies to non-numeric re sults) [facility] ([facility]) Lymph # 2.6 10 1.5-5.0 Normal (applies to non-numeric resul ts) [facility] ([facility]) Parker # 0.6 10 0.0-0.8 Normal (applies to non-numeric resul ts) [facility] ([facility]) Eos # 0.2 10 0.0-0.5 Normal (applies to non-numeric resul ts) [facility] ([facility]) Baso # 0.0 10 0.0-0.2 Normal (applies to non-numeric resul ts) [facility] ([facility]) ID Date Data Source [id number] 01/30/2020 09:10:00 PM EST [facility] ([facility]) Name Value Range Interpretation Code Description Data Sherrell rce(s) Supporting Document(s) Appearance, Urine RFX Laboratory test result Nor mal (applies to non-numeric results) [facility] ([facility]) Color, Urine RFX Laboratory test result Normal ( applies to non-numeric results) [facility] ([facility]) PH,Urine RFX 6.0 units 5.0-9.0 Normal (applies to non-numeric res ults) [facility] ([facility]) Protein, Urine Auto RFX Laboratory test result N ormal (applies to non-numeric results) [facility] ([facility]) Specific [place] Ur Auto RFX 1.005 1.002-1.035 Nor mal (applies to non-numeric results) [facility] ([facility]) Urobilinogen, Urine Auto RFX 0.2 mg/dL 0.0-2.0 Nor mal (applies to non-numeric results) [facility] ([facility]) Glucose, Urine (Ua) Auto RFX Laboratory test result Normal (applies to non- numeric results) [facility] ([facility]) Ketone, Urine Auto RFX Laboratory test result No rmal (applies to non-numeric results) [facility] ([facility]) Nitrite, Urine Auto RFX Laboratory test result N ormal (applies to non-numeric results) [facility] ([facility]) Leukocyte Esterase Ur Auto RFX Laboratory test result Normal (applies to non- numeric results) [facility] ([facility]) Bilirubin, Urine Auto RFX Laboratory test result Normal (applies to non- numeric results) [facility] ([facility]) Blood, Urine Blood RFX Laboratory test result No rmal (applies to non-numeric results) [facility] ([facility]) WBC, Urine Auto RFX 1 /HPF 0-3 Normal (applies to non-nume farzaneh results) [facility] ([facility]) RBC, Urine Auto RFX 1 /HPF 0-3 Normal (applies to non-nume farzaneh results) [facility] ([facility]) Squam Epithelial Cell Ur Aurfx 8 /HPF 0-6 N ormal (applies to non-numeric results) [facility] ([facility]) Bacteria, Urine Auto RFX Laboratory test result Normal (applies to non-numeric results) [facility] ([facility]) Hyaline Cast, Urine Auto RFX 0 /LPF 0-1 Normal (appl ies to non-numeric results) [facility] ([facility]) ID Date Data Source [id number] 12/03/2019 01:35:00 PM EDT [facility] ([facility] [...] process. Scoliosis. Professional interpretation performed at the [facility] Office [facility] . Name Value Range Interpretation Code Description Data Sherrell rce(s) Supporting Document(s) ID Date Data Source [id number] 12/03/2019 12:00:00 AM EDT [facility] ([facility]) Name Value Range Interpretation Code Description Data Sherrell rce(s) Supporting Document(s) 2019 Novel Coronavirus RNA DREA RTMAKER ([facility]) This lab was ordered by [facility] are and reported by [facility]. Procedure Vital Signs ID Date Data Source [id number] Name Value Range Interpretation Code Description Data Source(s) [place] body weight 115 [lb_av] 115 [lb_av] [facility] T ([facility]) Oxygen saturation in Arterial blood by Pulse oximetry 98 % 98 % [facility] ([facility]) Body temperature 97.8 [degF] 97.8 [degF] [facility] ([facility]) Respiratory rate 22 /min 22 /min [facility] ( [facility]) Heart rate 96 /min 96 /min [facility] ([facility]) Body mass index (BMI) [Ratio] 18.2 kg/m2 18.2 k g/m2 [facility] ([facility]) Body weight 104.50 [lb_av] 104.50 [lb_av] [facility] T ([facility]) Body height 63.6 [in_i] 63.6 [in_i] [facility] ([facility]) 5'3.60" Diastolic blood pressure 76 mm[Hg] 76 mm[Hg] [facility] ([facility]) Systolic blood pressure 110 mm[Hg] 110 mm[Hg] M [facility] ([facility]) [place] body weight 115 [lb_av] 115 [lb_av] [facility] T ([facility]) Oxygen saturation in Arterial blood by Pulse oximetry 99 % 99 % [facility] ([facility]) Body temperature 97.5 [degF] 97.5 [degF] [facility] ([facility]) Respiratory rate 18 /min 18 /min [facility] ( [facility]) Heart rate 78 /min 78 /min [facility] ([facility]) Body mass index (BMI) [Ratio] 19.0 kg/m2 19.0 k g/m2 [facility] ([facility]) Body weight 109.12 [lb_av] 109.12 [lb_av] [facility] T ([facility]) Body height 63.6 [in_i] 63.6 [in_i] [facility] ([facility]) 5'3.60" Diastolic blood pressure 84 mm[Hg] 84 mm[Hg] [facility] ([facility]) Systolic blood pressure 116 mm[Hg] 116 mm[Hg] M [facility] ([facility]) [place] body weight 115 [lb_av] 115 [lb_av] [facility] T ([facility]) Oxygen saturation in Arterial blood by Pulse oximetry 97 % 97 % [facility] ([facility]) Body temperature 98.6 [degF] 98.6 [degF] [facility] ([facility]) Respiratory rate 18 /min 18 /min [facility] ( [facility]) Heart rate 91 /min 91 /min [facility] ([facility]) Body mass index (BMI) [Ratio] 19.0 kg/m2 19.0 k g/m2 [facility] ([facility]) Body weight 109.12 [lb_av] 109.12 [lb_av] [facility] T ([facility]) Body height 63.6 [in_i] 63.6 [in_i] [facility] ([facility]) 5'3.60" Diastolic blood pressure 62 mm[Hg] 62 mm[Hg] [facility] ([facility]) Systolic blood pressure 104 mm[Hg] 104 mm[Hg] M [facility] ([facility])
[2020-04-06] MEDS: IBUPROFEN 400MG TAB PO PRN (17:40)
[2020-04-06 18:05] LABS: RSV AMPLIFICATION NEGATIVE (NEGATIVE)
[2020-04-06 21:43] VITALS: BP 126/78
[2020-04-06] MEDS: VARENICLINE 1 MG TABLET PO SCH (21:57)
[2020-04-07 06:11] VITALS: BP 111/53
[2020-04-07] MEDS: VARENICLINE 1 MG TABLET PO SCH (09:12)
[2020-04-07] MEDS: SERTRALINE 100 MG TAB PO SCH (09:12)
[2020-04-07] MEDS: ALBUTEROL 90 MCG/ACT 8GM HFA INHALER INH PRN (09:50)
[2020-04-07 16:33] VITALS: BP 126/72
--- NOTE | 2020-04-07 17:07 | HPEPDOC ---
General Date of Admission Apr 06, 2020 at 16:55 Date of Service: Apr 07, 2020 Chief Complaint The patient is a 19-year-old female admitted with a reason for visit of Unspecified Depressive Disorder. Source: Patient Exam Limitations: No limitations Timing/Duration: 24 hours History of Present Illness Patient is 19 years old female with past history of depression, scoliosis, anxiety, bipolar disorder, previous suicidal attempts presented hospital after suicidal attempt with knife. Patient refused to provide details and causes of suicidal attempt. During my interview patient denied fever, chills, nausea, and diarrhea or dysuria Home Medications Scheduled Sertraline Hcl (Zoloft) 100 Mg Tablet, 100 MG PO DAILY, (Reported) Varenicline Tartrate (Chantix) 1 Mg Tablet, 1 MG PO BID, (Reported) Scheduled PRN Albuterol Sulfate (Proair Hfa) 8.5 Gm Hfa.aer.ad, 2 PUFF INH QID PRN for SHORTNESS OF BREATH, (Reported) Trazodone HCl (Trazodone HCl) 50 Mg Tablet, 50 MG PO QHS PRN for SLEEP, (Reported) Allergies Coded Allergies: No Known Allergies (Unverified , 04/24/18) Past Medical History Medical History depression, scoliosis, anxiety, bipolar disorder, previous suicidal attempts, asthma Family History I personally reviewed family history and found not pertinent Social History * Smoker: former Smoker Alcohol: Denies Drugs: denies A-FIB/CHADSVASC A-FIB History Current/History of A-Fib/PAF?: No Current PO Anticoag Therapy: No Review of Systems Constitutional: Denies: Chills Eyes: Denies: Pain, Vision change ENT: Denies: Head Aches Skin: Denies: Rash Pulmonary: Denies: Dyspnea, Cough Cardiovascular: Denies: Chest Pain Gastrointestinal: Denies: Nausea, Vomiting Genitourinary: Denies: Dysuria Hematologic: Denies: Bruising Endocrine: Denies: Polydipsia Musculoskeletal: Denies: Neck Pain Neurological: Denies: Weakness Psych: Reports: Depression Physical Examination General Exam: Positive: Alert Eye Exam: Positive: PERRLA ENT Exam: Positive: Atraumatic Neck Exam: Positive: Supple Chest Exam: Positive: Clear to auscultation Heart Exam: Positive: Rate Normal Telemetry: Positive: No significant arrhythmia Abdomen Exam: Positive: Normal bowel sounds Extremity Exam: Negative: Clubbing Skin Exam: Positive: Nl turgor and temperature Neuro Exam: Positive: Normal Gait Psych Exam: Positive: Mental status NL Vital Signs Vital Signs Date Time Temp Pulse Resp B/P (MAP) Pulse Ox O2 Delivery O2 Flow Rate FiO2 04/07/20 16:33 98.9 85 16 126/72 (90) 97 Room Air Assessment/Plan Patient is 19 years old female with past history of depression, scoliosis, anxiety, bipolar disorder, previous suicidal attempts presented hospital after suicidal attempt with knife. Patient refused to provide details and causes of suicidal attempt. During my interview patient denied fever, chills, nausea, and diarrhea or dysuria Problems (1) Asthma Status: Chronic Problem Text: Not in acute exacerbation Continue inhalers (2) Suicidal ideation Status: Acute Problem Text: defer to Psych team Plan / VTE VTE Prophylaxis Ordered?: No VTE Exclusion Mechanical Proph: Low Risk for VTE MAGDIEL ERICKSON DO Apr 07, 2020 17:07
[2020-04-07] MEDS ORDERED: OLANZapine ORAL DISINTEGRATING TAB 5MG PO PRN (21:30)
[2020-04-07] MEDS: traZODone 50 MG TAB PO PRN (22:00)
[2020-04-08] MEDS: ALBUTEROL 90 MCG/ACT 8GM HFA INHALER INH PRN (09:07)
[2020-04-08] MEDS: SERTRALINE 100 MG TAB PO SCH (09:07)
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
[2020-04-08 19:21] VITALS: BP 139/63
[2020-04-08] MEDS: traZODone 50 MG TAB PO PRN (20:19)
[2020-04-09 06:48] VITALS: BP 101/55
[2020-04-09] MEDS: ALBUTEROL 90 MCG/ACT 8GM HFA INHALER INH PRN (08:12)
[2020-04-09] MEDS: SERTRALINE 100 MG TAB PO SCH (08:12)
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
[2020-04-09 18:43] VITALS: BP 98/52
[2020-04-10 06:32] VITALS: BP 115/61
[2020-04-10] MEDS: SERTRALINE 100 MG TAB PO SCH (08:13)
[2020-04-10] MEDS: ALBUTEROL 90 MCG/ACT 8GM HFA INHALER INH PRN (16:27)
--- NOTE | 2020-04-10 17:08 | MHIPN ---
[facility] PROGRESS NOTE DATE: 04/10/2020 This is a video assessment. We are doing this because of the pandemic. She is seen in the presence of staff. VITAL SIGNS: Blood pressure 105/61, pulse 66, temperature 98.5. CHIEF COMPLAINT: Says feels okay. SUBJECTIVE: Seen for followup. Indicates feels better, a bit irritated because of a couple of other residents there. Says she took anti-agitation medication, this was yesterday, Zyprexa, felt quite drowsy some time after that, this has lingered into today. No cravings, does not intend smoking cannabis again. MENTAL STATUS EXAMINATION: Neat, cooperative. No agitation. No psychomotor retardation. She is coherent. Her affect restricted in range. Denies any suicidal thoughts or intents. No homicidal ideas or intents. No evidence of any psychosis. Cognition grossly intact. Judgment and insight improved, though remain a bit compromised. ASSESSMENT: 1. Major depressive disorder, possibly recurrent. 2. Cannabis use disorder. PLAN: Continue Zoloft 100 mg daily. No indication of changing this at present. Encourage her to remain off the cannabis. She says has spoken with her roommate Filiberto again and may return there for a few days until she goes to her father's place. She also says that it is possible they may continue staying together, she and her roommate, but that there would have to be changes for that to happen. We will look at discharging within the next 24-48 hours if status positive continues.
[2020-04-10] MEDS ORDERED: hydrOXYzine 10 MG TAB PO PRN (18:30)
[2020-04-10 18:45] VITALS: BP 110/60
[2020-04-10] MEDS: traZODone 50 MG TAB PO PRN (20:46)
[2020-04-11 07:11] VITALS: BP 111/62
[2020-04-11] MEDS: SERTRALINE 100 MG TAB PO SCH (07:51)
[2020-04-11] MEDS: ALBUTEROL 90 MCG/ACT 8GM HFA INHALER INH PRN ×2 (09:29→21:08)
[2020-04-11 16:00] VITALS: BP 118/77
[2020-04-11] MEDS: traZODone 50 MG TAB PO PRN (21:08)
[2020-04-12 07:06] VITALS: BP 132/94
[2020-04-12] MEDS: SERTRALINE 100 MG TAB PO SCH (08:01)
--- NOTE | 2020-04-12 09:26 | MHIPN ---
[facility] PROGRESS NOTE DATE: 04/09/2020 VITAL SIGNS: Blood pressure 101/65, temperature 98.2, pulse 74. This is a video assessment, she is aware of it, agrees to it, she is seen in the presence of staff. CHIEF COMPLAINT: Says feels okay. SUBJECTIVE: She is seen for followup, indicates has been feeling okay, slept well. Has felt a bit anxious this morning, says it is because of her surroundings, and a couple of the patients and their conditions. Appetite is improved, though she has not eaten much. MENTAL STATUS EXAMINATION: Neat, cooperative, no agitation, no psychomotor retardation, she is coherent, affect is restricted but reactive. Denies any suicidal thoughts or intents, no homicidal ideas or intents, no evidence of any psychosis. Cognition grossly intact. Judgment somewhat improved, as is insight, but they remain compromised overall. ASSESSMENT: Major depressive disorder, chronic, possibly recurrent. Cannabis use disorder. Consider cannabis induced depressive disorder. Feels better, more confident. PLAN: Continue current care, observations, obtain collateral information. She is to continue with the Zoloft at 100 mg daily. She receives Zydis Zyprexa for agitation. Should such progress continue, will consider discharge in the next 48-96 hours.
[2020-04-12] MEDS: IBUPROFEN 400MG TAB PO PRN (12:51)
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
--- NOTE | 2020-04-12 21:07 | MHIPN ---
[facility] PROGRESS NOTE DATE: 04/11/2020 VITAL SIGNS: Blood pressure 118/77, pulse 68, temperature 98.2. She is seen for followup, via video, in the presence of staff. CHIEF COMPLAINT: Says feels okay. SUBJECTIVE: She is seen for followup, indicates feels okay, but that had been anxious, took hydroxyzine, felt quite tired on that, it was 10 mg, took it earlier in the day. Says slept well. Denies any cravings for cannabis. Denies any desire to cut, or to hurt herself. MENTAL STATUS EXAMINATION: Neat, cooperative, no agitation, no psychomotor retardation. Affect is restricted in range but reactive. Denies any suicidal thoughts or intents, no homicidal ideation or intents, no evidence at present of any psychosis. Cognition grossly intact. Judgment is good, insight is improved. ASSESSMENT: Major depressive disorder, recurrent. Cannabis use disorder. Less depressed, more confident. PLAN: Continue Zoloft 100 mg daily. We will discontinue the hydroxyzine, as it has been sedating for her. In view of all this, and the improvement, should this continue, will look at discharging her within the next 24-48 hours. Meanwhile, will continue with current observations.
== END 2020-04-12 16:02 | disposition home or self-care (01) | DRG 751 ==
LOC: M ED 12:56 → M ED INP 16:55 → M PSY 20:20
PROVIDERS: ADMIT Psychiatry & Neurology Psychiatry; ATTEND Psychiatry & Neurology Psychiatry
DX: F33.9 Major depressive disorder, recurrent, unspecified (principal); R45.851 Suicidal ideations; F12.188 Cannabis abuse with other cannabis-induced disorder; Z63.79 Other stressful life events affecting family and household; Z63.8 Other specified problems related to primary support group; Z87.891 Personal history of nicotine dependence

== ENCOUNTER → 2021-05-27 | Outpatient (CLI) | payer OTHER ==
[~2021-05-27] MED LIST changes: +CHAN1PAK13 PO; +PROAAER10 INH; -SERTRALINE 100 MG TAB PO SCH; +TRAZ1TAB11 PO; +ZOLO100T PO
== END ==
LOC: M RAD 14:47
PROVIDERS: ATTEND Physician Assistant Medical
DX: M54.9 Dorsalgia, unspecified (principal); M41.34 Thoracogenic scoliosis, thoracic region

== ENCOUNTER → 2022-03-02 | Outpatient (REF) | payer OTHER ==
[~2022-03-02] MED LIST changes: +DIPH-435 PO; -DIPH25CA32 PO
[2022-03-02 21:03] LABS: APPEARANCE, URINE MANUAL CLEAR (CLEAR); COLOR, URINE MANUAL YELLOW (YELLOW)
[2022-03-02 21:05] LABS: BILIRUBIN, URINE MANUAL NEGATIVE (NEGATIVE); GLUCOSE, URINE (UA) MANUAL NEGATIVE (NEGATIVE); KETONE, URINE MANUAL NEGATIVE (NEGATIVE); NITRITE, URINE MANUAL NEGATIVE (NEGATIVE); PROTEIN, URINE MANUAL NEGATIVE (NEGATIVE); UROBILINOGEN, URINE MANUAL NORMAL (NORMAL)
[2022-03-02 21:06] LABS: BLOOD URINE MANUAL TRACE (NEGATIVE); LEUKOCYTE ESTERASE, URINE MAN TRACE (NEGATIVE)
[2022-03-02 21:21] LABS: BACTERIA, URINE SMALL AMOUNT; MUCUS, URINE SMALL AMOUNT (NEGATIVE); SQUAMOUS EPITHELIAL CELL URINE MOD AMOUNT /hpf (SMALL AMT); TRANSITIONAL EPI CELLS, URINE LARGE AMOUNT /hpf
[2022-03-02 21:22] LABS: HYALINE CAST, URINE NONE SEEN /lpf (0-1)
== END ==
LOC: M LAB REF 20:42
PROVIDERS: ATTEND Physician Assistant
DX: N39.0 Urinary tract infection, site not specified (principal)

== ENCOUNTER 2022-08-11 23:22 | Emergency (ER) | payer OTHER ==
[~2022-08-11] VITALS: Ht 162.6 cm; Wt 48.6 kg
[2022-08-11 23:22] VITALS: BP 106/58; TEMP 97.7; O2SAT 97
== END 2022-08-12 00:02 | disposition left against medical advice (07) ==
LOC: M ED 23:22
DX: R06.02 Shortness of breath (principal); Z53.21 Procedure and treatment not carried out due to patient leaving prior to being seen by health care provider

== ENCOUNTER 2022-09-02 09:10 | Emergency (ER) | payer OTHER ==
[~2022-09-02] VITALS: Ht 162.6 cm; Wt 49.6 kg
[2022-09-02] MEDS ORDERED: KETOROLAC 30 MG/ML 1ML VIAL IV ONE (12:35)
[2022-09-02] MEDS ORDERED: ONDANSETRON 4MG 2ML VIAL IV ONE (12:35)
[2022-09-02 13:01] LABS: BASO % 0.3 % (0.0-1.0); EOS # 0.1 10^3/uL (0.0-0.5); EOS % 1.3 % (0.0-3.0); HEMATOCRIT 42.7 % (36.0-47.0); HEMOGLOBIN 14.1 g/dl (12.0-15.5); LYMPH # 2.1 10^3/uL (1.5-5.0); LYMPH % 31.4 % (24.0-44.0); MEAN CORPUSCULAR HEMOGLOBIN 30.5 pg (27.0-33.0); MEAN CORPUSCULAR VOLUME 92.4 fl (80.0-96.0); MONO # 0.4 10^3/uL (0.0-0.8); MONO % 6.5 % (2.0-8.0); NEUTROPHILS # 4.1 10^3/uL (1.5-8.5); NEUTROPHILS % 60.4 % (36.0-66.0); PLATELET COUNT, AUTOMATED 202 10^3/uL (150-450); RED BLOOD COUNT 4.62 10^6/uL (4.00-5.40); WHITE BLOOD COUNT 6.8 10^3/uL (4.0-10.0)
[2022-09-02 13:30] LABS: ALBUMIN 4.4 G/DL (3.2-5.2); ALKALINE PHOSPHATASE 54 U/L (46-116); ALT/SGPT 11 U/L (7.0-40); AST/SGOT 17 U/L (<34); BILIRUBIN,TOTAL 0.6 MG/DL (0.3-1.2); BLOOD UREA NITROGEN 16 MG/DL (9-23); CALCIUM LEVEL 9.2 MG/DL (8.5-10.1); CARBON DIOXIDE LEVEL 27 MMOL/L (20-31); CHLORIDE LEVEL 105 MMOL/L (98-107); CREATININE FOR GFR 0.52 MG/DL (0.55-1.30); GLOMERULAR FILTRATION RATE > 60.0 (>60); GLUCOSE, FASTING 78 MG/DL (60-100); POTASSIUM SERUM 4.2 MMOL/L (3.5-5.1); SODIUM LEVEL 140 MMOL/L (136-145); TOTAL PROTEIN 7.2 G/DL (5.7-8.2)
[2022-09-02] MEDS ORDERED: NS 1,000 ML IV ONE (13:45)
[2022-09-02] MEDS ORDERED: ISOVUE-370 76% 100ML VIAL As Ordered ONE (13:55)
[2022-09-02] MEDS ORDERED: KETO10TAB PO (15:15)
[2022-09-02] MEDS ORDERED: TRAM50TA2 PO (15:15)
[2022-09-02 15:39] VITALS: BP 104/55; TEMP 98; O2SAT 98
[2022-09-02 16:41] LABS: GC DNA AMPLIFICATION NEGATIVE (NEGATIVE)
== END 2022-09-02 15:42 | disposition home or self-care (01) ==
LOC: M ED 09:10
DX: R10.2 Pelvic and perineal pain (principal); N83.209 Unspecified ovarian cyst, unspecified side; M41.9 Scoliosis, unspecified; F17.200 Nicotine dependence, unspecified, uncomplicated
CPT/HCPCS: 74177; 76856; 76857; 80053; 81001; 84702; 85025; 87661; 87810; 87850; 93976; 96374; 96375; 99284; J1885; J2405; Q9967

== ENCOUNTER 2024-03-08 12:03 | Emergency (ER) | payer OTHER ==
[~2024-03-08] VITALS: Ht 162.6 cm; Wt 45.9 kg
[~2024-03-08 12:03] MED LIST changes: -GUAI100L2 PO; +KETO10TAB PO; +TRAM50TA2 PO; +[UNRECOGNIZED DRUG - CODE] PO
[2024-03-08 13:16] LABS: KETONE, URINE AUTO RFX TRACE mg/dL (NEGATIVE); LEUKOCYTE ESTERASE UR AUTO RFX NEGATIVE (NEGATIVE); MUCUS, URINE RFX SMALL (NEGATIVE); NITRITE, URINE AUTO RFX NEGATIVE (NEGATIVE); RBC, URINE AUTO RFX 3 /HPF (0-3); SQUAM EPITHELIAL CELL UR AURFX 10 /HPF (0-6); WBC, URINE AUTO RFX 1 /HPF (0-3)
[2024-03-08 13:19] LABS: BASO % 0.3 % (0.0-1.0); EOS % 0.5 % (0.0-3.0); HEMATOCRIT 42.6 % (36.0-47.0); HEMOGLOBIN 14.6 g/dl (12.0-15.5); LYMPH % 25.6 % (24.0-44.0); MEAN CORPUSCULAR HEMOGLOBIN 30.6 pg (27.0-33.0); MEAN CORPUSCULAR HGB CONC 34.3 g/dl (32.0-36.5); MEAN CORPUSCULAR VOLUME 89.3 fl (80.0-96.0); MONO # 0.7 10^3/uL (0.0-0.8); MONO % 16.8 % (2.0-8.0); NEUTROPHILS # 2.2 10^3/uL (1.5-8.5); NEUTROPHILS % 56.5 % (36.0-66.0); PLATELET COUNT, AUTOMATED 191 10^3/uL (150-450); RED BLOOD COUNT 4.77 10^6/uL (4.00-5.40); WHITE BLOOD COUNT 3.9 10^3/uL (4.0-10.0)
[2024-03-08 13:43] LABS: LIPASE 32 U/L (12-53)
[2024-03-08 13:46] LABS: ALBUMIN 4.1 G/DL (3.2-5.2); ALKALINE PHOSPHATASE 56 U/L (35-104); ALT/SGPT 16 U/L (7.0-40); AST/SGOT 20 U/L (<34); BILIRUBIN,DIRECT 0.2 MG/DL (<0.4); BILIRUBIN,TOTAL 0.5 MG/DL (0.3-1.2); BLOOD UREA NITROGEN 10 MG/DL (9-23); CALCIUM LEVEL 8.5 MG/DL (8.5-10.1); CARBON DIOXIDE LEVEL 28 MMOL/L (20-31); CHLORIDE LEVEL 106 MMOL/L (98-107); GLOMERULAR FILTRATION RATE > 60.0 (>60); GLUCOSE, FASTING 95 MG/DL (60-100); POTASSIUM SERUM 3.7 MMOL/L (3.5-5.1); SODIUM LEVEL 143 MMOL/L (136-145); TOTAL PROTEIN 7.1 G/DL (5.7-8.2)
[2024-03-08 13:47] LABS: HCG, SERUM QUALITATIVE NEGATIVE (NEGATIVE)
[2024-03-08] MEDS ORDERED: ISOVUE-370 76% 100ML VIAL As Ordered ONE (15:49)
[2024-03-08 17:12] VITALS: BP 112/61; TEMP 98.5; O2SAT 97
== END 2024-03-08 17:20 | disposition home or self-care (01) ==
LOC: M ED 12:03
DX: K52.9 Noninfective gastroenteritis and colitis, unspecified (principal); F17.200 Nicotine dependence, unspecified, uncomplicated
CPT/HCPCS: 36415; 74177; 80048; 80076; 81001; 83690; 84703; 85025; 87486; 87581; 87633; 87798; 99284; Q9967